=== PATIENT | female | born 1970 | race Caucasian/White ===

== ENCOUNTER 2022-10-31 11:58 | Emergency (ER) | payer MEDICAID, SELFPAY ==
--- NOTE | ~2022-10-31 | CT_ITS ---
EXAMINATION: CT ABDOMEN AND PELVIS WITH CONTRAST CLINICAL INFORMATION: Diffuse abdominal pain, epigastric and lower. COMPARISON: None available. TECHNIQUE: Multidetector volumetric images were obtained from the superior aspect of the liver through the pubic symphysis following administration 85 mL of Omnipaque 350 intravenous contrast. Sagittal and coronal reformatted images were obtained on the technologist's workstation. Oral contrast: No This CT examination was performed using dose optimization techniques as appropriate, variously including the following: *Automated exposure control *Adjustment of mA and/or kV according to patient size (this includes techniques or standardized protocols for targeted exams where dose is matched to indication/reason for exam; i.e. extremities or head) *Use of iterative reconstruction technique DLP: 440 mGy-cm FINDINGS: LUNG BASES: The visualized lung bases are unremarkable. LIVER, GALLBLADDER, AND BILIARY TREE: No significant hepatic abnormality. Status post cholecystectomy with associated mild biliary ductal dilatation. PANCREAS: Unremarkable. SPLEEN: Unremarkable. ADRENAL GLANDS: Unremarkable. KIDNEYS AND URETERS: The kidneys are normal in size, shape, and attenuation. No hydronephrosis, hydroureter, or calculi seen. No perinephric stranding. BLADDER: Unremarkable. GASTROINTESTINAL TRACT: The stomach is unremarkable. Several mildly prominent fluid-filled loops of small bowel are seen without significant mural thickening. This is seen to the level of the terminal ileum. Moderate liquefied stool seen within the proximal colon. Mild gas and stool are seen in the distal colon to the rectum without surrounding abnormality. ABDOMINAL WALL: Postsurgical changes. Small left paramedian infraumbilical fat-containing hernia (image 56, series 3; image 52, series 8). LYMPH NODES: No lymphadenopathy. VASCULAR: Unremarkable. PELVIC VISCERA: Enlarged fibroid uterus no significant adnexal abnormality. OSSEOUS STRUCTURES: Unremarkable. CT/CT abdomen pelvis w IV con IMPRESSION: 1. Several fluid-filled loops of small bowel without pathologic dilatation or definitive obstruction. Moderate liquefied stool within the proximal colon with no significant abnormality distally. These findings are nonspecific. The patient has persistent abdominal pain, short-term radiographic follow-up with supine and upright views is recommended to assess for change. 2. Small fat-containing ventral hernia adjacent to the anterior surgical clips. 3. Enlarged fibroid uterus.
[2022-10-31 12:05] VITALS: BP 134/62; PULSE 108; O2SAT 98
[2022-10-31 12:36] VITALS: BP 110/51; PULSE 105; RESP 20; TEMP 36.4; O2SAT 99; BMI 30.3
--- NOTE | 2022-10-31 12:51 | ED_ITS ---
HPI - Female Genitourinary General Chief complaint: Urogenital-Female Stated complaint: PAINFUL URINATION,PAIN TO BLADDER AND KIDNEYS Time Seen by Provider: 10/31/22 12:45 Source: patient, EMS, RN notes reviewed and old records reviewed Mode of arrival: EMS History of Present Illness HPI Narrative: 52-year-old female with no significant past medical history presenting to the ED complaining of dysuria, urinary hesitancy, nausea, and lower abdominal pain x2 days. Also reports acute on chronic low back pain. Denies fever, chills, vomit ing/diarrhea, vaginal bleeding/discharge MD elicited complaint: dysuria Related Data Previous Rx's Medication Instructions Recorded cefpodoxime 200 mg tablet 200 mg PO BID 10 days #20 tabs 10/31/22 Allergies Allergy/AdvReac Type Severity Reaction Status Date / Time ciprofloxacin [From Cipro] Allergy Unknown Verified 10/31/22 12:32 Review of Systems Review of Systems: Constitutional: No Fever, No Chills, No Fatigue, No Malaise ENT/Mouth:No Ear Pain, No sore throat, No Rhinorrhea, No Swallowing Difficulty Eyes: No Eye Pain, No Swelling, No Redness, No Vision Changes Cardiovascular: No Chest Pain, No SOB, No Edema, No Palpitations Respiratory: No Cough, No Sputum, No Dyspnea Gastrointestinal: + Nausea, No Vomiting, No Diarrhea, No Constipation, + Abdominal pain Genitourinary: +Dysuria, No Urinary Frequency, No Hematuria, No Urgency, No Flank Pain, No Urinary Flow Changes, + Hesitancy Musculoskeletal: No joint pain, No Myalgias, No Joint Swelling Skin: No Skin Lesions, No rash Neuro: No Weakness, No Headache Yes all other systems are reviewed and are negative Constitutional: Constitutional: Reports as per [facility] Past Medical History Attestation statement: The following information was validated with the patient. Source: old records reviewed Medical History (Updated 10/31/22 @ 17:58 by NADIA Fagan) Diabetes mellitus UTI (urinary tract infection) Social History Social History Alcohol intake: current Alcohol intake frequency: a few times a week Smoked in Last 30 Days: No Use of substances other than those prescribed or required for medical reasons: Yes Substance Use Type: Marijuana Advance Directives: No Advance Directives Information Provided: No Physical Exam Vital Signs: Vital Signs: Last Vital Signs Temp 98 F 10/31/22 17:45 Pulse 91 10/31/22 17:45 Resp 18 10/31/22 17:45 BP 128/74 10/31/22 17:45 Pulse Ox 100 10/31/22 17:45 O2 Del Method Room Air 10/31/22 17:45 BMI result Body Mass Index 30.3 Const: General: cooperative, healthy appearing and no acute distress Orientation/consciousness: patient oriented x3 Limitations: no limitations HEENT: Head: Yes normal to inspection and Yes atraumatic Ears: hearing grossly normal bilaterally General nose exam: Normal external nose present Face and sinus: Yes normal facial exam Eyes: General: appearance normal, both eyes and all related structures EOM: EOMs intact bilaterally Neck: Neck: Yes normal visual inspection and Yes no meningeal signs Resp: Effort & Inspection: normal respiratory effort and no respiratory distress Auscultation: clear to auscultation bilaterally Cardio: Rate: regular rate Heart sounds: S1 normal heart sound present and S2 normal heart sound present GI: Inspection: Yes normal to inspection Palpation (GI): Soft to palpation, Tenderness to palpation present (GI) (lower abdomen) in the epigastrum; with no rebound tenderness, no guarding and not rigid : General: Yes no CVA tenderness Back/Spine/Pelvis: Back: no CVA tenderness Skin: Rashes: no rashes Wounds: no wounds Neuro: General: patient oriented x3, tone normal and no meningeal signs Gait exam (Neuro): Normal gait present Extrem: General: Yes normal to inspection Course Course Course Narrative: -1353--UA contaminated however with positive nitrates, leuk esterase, rbc's and wbc's -mild leukocytosis of 12.5. H&H low at 8.5/29.3 > no available priors to compare -UA contaminated however infected CT abdomen pelvis w IV con IMPRESSION: 1. Several fluid-filled loops of small bowel without pathologic dilatation or definitive obstruction. Moderate liquefied stool within the proximal colon with no significant abnormality distally. These findings are nonspecific. The patient has persistent abdominal pain, short-term radiographic follow-up with supine and upright views is recommended to assess for change. 2. Small fat-containing ventral hernia adjacent to the anterior surgical clips. 3. Enlarged fibroid uterus. > on re-evaluation patient reports symptomatic improvement, did tolerate p.o. crackers and janessa rale, abdomen soft still mildly tender > LLQ >> will consult General surgery, Dr. Way > evaluated patient in the ED, suspect ileus from UTI, patient refusing admission, would like to sign out AMA. General surgery recommended if tolerating p.o., appears well can be okay for discharge, ideally patient would be admitted, discussed worrisome signs and symptoms, strict return precautions and needed close follow-up. Discussed risks of leaving AMA, patient will sign out Medications Administered Discontinued Medications Generic Name Dose Route Start Last Admin Trade Name Freq PRN Reason Stop Dose Admin Famotidine 20 mg 10/31/22 13:30 10/31/22 14:17 Famotidine/Pf 20 Mg/2 Ml Vial IVPUSH 10/31/22 13:31 20 mg ONCE ONE Administration Sodium Chloride 1,000 mls @ 999 mls/hr 10/31/22 13:30 10/31/22 16:09 Ns IV 10/31/22 14:30 Infused .Q1H1M NONA Infusion Iohexol 100 ml 10/31/22 14:57 10/31/22 14:58 Iohexol 350 Mg/Ml 100 Ml Infus..Btl IV 10/31/22 14:58 85 ml ONCE ONE Administration Ondansetron HCl 4 mg 10/31/22 13:30 10/31/22 14:19 Ondansetron Hcl 4 Mg/2 Ml Vial IVPUSH 10/31/22 13:31 4 mg ONCE ONE Administration Medical Decision Making Medical Decision Making MDM Narrative: 52-year-old female with no significant past medical history presenting to the ED complaining of dysuria, urinary hesitancy, nausea, and lower abdominal pain x2 days. On exam mildly tachycardic likely from discomfort, NAD/nontoxic appearing, abdomen soft epigastric/lower diffuse tenderness, no rebound or guarding, no CVAT. Concern for UTI vs renal stone vs Pyelonephritis vs appendi citis/diverticulitis. Lower suspicion for STI/ovarian torsion/cyst Plan: Labs, UA, CT AP, IVF, pain control, re-evaluate Low suspicion for severe sepsis Please refer to course for remaining clinical decision making, interpretation of labs/imaging results, and discussions with consultants and/or family members. Differential Diagnosis Differential Diagnoses: The differential diagnosis associated with the presentation includes As above Admission/Observation Consideration of admission/observation: Escalation of care including admission/observation considered Consult Healthcare Provider Management of the patient was discussed with: Choral Director (general surgeon, Dr. Way) Lab Data MDM Lab Attestation statement: I reviewed the patient's lab results. 10/31/22 13:47 Labs: Lab Results 10/31/22 10/31/22 10/31/22 Range/Units 12:48 12:48 13:47 WBC 12.5 H (4.8-10.8) X10*3/uL RBC 3.81 L (4.20-5.50) X10*6/uL Hgb 8.5 L (12.0-16.0) g/dl Hct 29.3 L (37.0-47.0) % MCV 76.9 L (80.0-98.0) fL MCH 22.3 L (27.0-33.0) pg MCHC 29.0 L (31.0-35.0) g/dl RDW 16.3 H (11.0-16.0) % Plt Count 321 (160-400) X10*3/uL MPV 9.7 (9.4-12.3) fL Immature Gran % (Auto) 0.2 (0.0-0.4) % Neut % (Auto) 89.8 H (45-73) % Lymph % (Auto) 4.6 L (20-40) % Saline % (Auto) 5.0 (2-11) % Eos % (Auto) 0.2 (0-4) % Baso % (Auto) 0.2 (0-2) % Lymph # (Auto) 0.6 L (1.2-4.9) X10*3/uL Saline # (Auto) 0.6 (0.1-1.2) X10*3/uL Eos # (Auto) 0.0 (0.0-0.4) X10*3/uL Baso # (Auto) 0.0 (0.0-0.2) X10*3/uL Abs Immat Gran (auto) 0.03 (0.00-0.03) X10*3/uL Absolute Neuts (auto) 11.2 H (2.0-8.3) x10*3/uL Absolute Nucleated RBC 0.000 (0.0-0.012) X10*3/uL Nucleated RBC % (auto) 0.0 (0.0-0.2) /100WBC Sodium (135-145) mmol/L Potassium (3.3-5.1) mmol/L Chloride (96-108) mmol/L Carbon Dioxide (22-29) mmol/L Anion Gap (12-20) BUN (9-16) mg/dL Creatinine (0.5-1.4) mg/dL Estim Creat Clear Calc Estimated GFR Random Glucose (60-115) mg/dL Calcium (8.4-10.2) mg/dL Magnesium (1.6-2.6) mg/dL Total Bilirubin (0.0-1.0) mg/dL Direct Bilirubin (0.0-0.5) mg/dL AST (5-31) U/L ALT (0-31) U/L Alkaline Phosphatase (39-117) U/L Total Protein (6.5-8.0) g/dL Albumin (3.5-5.0) g/dL Lipase (8-78) U/L Urine Color Yellow Urine Appearance Turbid Urine pH 5.5 (5.0-9.0) Ur Specific [place] 1.020 (1.005-1.025) Urine Protein Negative (Neg-Trace) mg/dL Urine Glucose (UA) Negative (Negative) mg/dL Urine Ketones Negative (Negative) mg/dL Urine Blood Small (1+) H (Negative) Urine Nitrite Positive H (Negative) Ur Leukocyte Esterase Moderate (2+) H (Negative) Urine RBC >20 H (0-2) /HPF Urine WBC 21-50 H (0-5) /HPF Ur Squamous Epith Cells 11-20 (0-2) /HPF Other Crystals Present Urine Bacteria 4+ (None Seen) Hyaline Casts 0-2 (0-2) /LPF Urine Test NEGATIVE (NEGATIVE) 10/31/22 Range/Units 13:47 WBC (4.8-10.8) X10*3/uL RBC (4.20-5.50) X10*6/uL Hgb (12.0-16.0) g/dl Hct (37.0-47.0) % MCV (80.0-98.0) fL MCH (27.0-33.0) pg MCHC (31.0-35.0) g/dl RDW (11.0-16.0) % Plt Count (160-400) X10*3/uL MPV (9.4-12.3) fL Immature Gran % (Auto) (0.0-0.4) % Neut % (Auto) (45-73) % Lymph % (Auto) (20-40) % Saline % (Auto) (2-11) % Eos % (Auto) (0-4) % Baso % (Auto) (0-2) % Lymph # (Auto) (1.2-4.9) X10*3/uL Saline # (Auto) (0.1-1.2) X10*3/uL Eos # (Auto) (0.0-0.4) X10*3/uL Baso # (Auto) (0.0-0.2) X10*3/uL Abs Immat Gran (auto) (0.00-0.03) X10*3/uL Absolute Neuts (auto) (2.0-8.3) x10*3/uL Absolute Nucleated RBC (0.0-0.012) X10*3/uL Nucleated RBC % (auto) (0.0-0.2) /100WBC Sodium 137 (135-145) mmol/L Potassium 3.9 (3.3-5.1) mmol/L Chloride 107 (96-108) mmol/L Carbon Dioxide 22 (22-29) mmol/L Anion Gap 12 (12-20) BUN 9 (9-16) mg/dL Creatinine 0.58 (0.5-1.4) mg/dL Estim Creat Clear Calc 87.0 Estimated GFR > 60 Random Glucose 111 (60-115) mg/dL Calcium 8.6 (8.4-10.2) mg/dL Magnesium 1.7 (1.6-2.6) mg/dL Total Bilirubin 0.3 (0.0-1.0) mg/dL Direct Bilirubin 0.1 (0.0-0.5) mg/dL AST 13 (5-31) U/L ALT 7 (0-31) U/L Alkaline Phosphatase 91 (39-117) U/L Total Protein 6.8 (6.5-8.0) g/dL Albumin 3.5 (3.5-5.0) g/dL Lipase 12 (8-78) U/L Urine Color Urine Appearance Urine pH (5.0-9.0) Ur Specific [place] (1.005-1.025) Urine Protein (Neg-Trace) mg/dL Urine Glucose (UA) (Negative) mg/dL Urine Ketones (Negative) mg/dL Urine Blood (Negative) Urine Nitrite (Negative) Ur Leukocyte Esterase (Negative) Urine RBC (0-2) /HPF Urine WBC (0-5) /HPF Ur Squamous Epith Cells (0-2) /HPF Other Crystals Urine Bacteria (None Seen) Hyaline Casts (0-2) /LPF Urine Test (NEGATIVE) Radiology Impression Discussion of test interpretation with radiology: I have reviewed the radiologist's reading. Independent Historian Clinical information obtained from an independent historian. History obtained from or confirmed by: EMS External Record Review External record reviewed: Inpatient record, Office record, Outpatient record, Prior outpatient labs, Prior outpatient radiology, Primary care record and Outside ED record Tests considered The following testing was considered but not selected: As above Prescription Management I considered prescription management with: Pain Medication Discharge Plan Discharge Clinical Impression: UTI (urinary tract infection), Ileus Patient Disposition: Left Against Medical Advice Instructions: Ileus (ED), Urinary Tract Infection in Older Adults (ED) Additional Instructions: Your blood work does show anemia, please have repeat labs outpatient with her primary care doctor You do have a urinary tract infection as well as fluid-filled loops of bowel suspicious for an ileus CEFPODOXIME IS AN ANTIBIOTIC PLEASE TAKE PRESCRIBED WE RECOMMENDED YOU ARE ADMITTED TO THE HOSPITAL TODAY HOWEVER YOUR SIGNING OUT AGAINST MEDICAL ADVICE. YOU ARE ALWAYS WELCOME TO RETURN Practice clear liquids for the next few days IF YOU HAVE PERSISTENT WORSENING ABDOMINAL PAIN, PERSISTENT WORSENING NAUSEA/ VOMITING, YOUR UNABLE TO EAT OR DO NOT HAVE A BOWEL MOVEMENT IN 48 HOURS RETURN TO THE ED IMMEDIATELY FOLLOW-UP WITH YOUR DOCTOR Willis an?lisis de omari muestra anemia, repita los an?lisis de laboratorio louie paciente ambulatorio con willis m?dico de atenci?n primaria Tiene dago infecci?n del tracto urinario, as? louie asas intestinales llenas de l?quido sospechosas de ?damien. CEFPODOXIMA ES UN ANTIBI?KEYLA POR FAVOR T?OREILLY SEG?N LO RECETADO LE RECOMENDAMOS QUE EST? ADMITIDO EN EL HOSPITAL HOY SIN EMBARGO WILLIS SALIDA EN CONTRA DEL CONSEJO M?DICO. SIEMPRE ERES ANGIE A VOLVER Practique l?quidos emily breanne los pr?ximos d?as. SI USTED TIENE DOLOR ABDOMINAL QUE EMPEORA PERSISTENTE, N?USEAS/V?MITOS QUE EMPEORAN PERSISTENTE, NO PUEDE COMER O NO TIENE DAGO DEFECCI?N EN 48 HORAS, VUELVA AL ED INMEDIATAMENTE SEGUIMIENTO CON WILLIS M?DICO Prescriptions: New cefpodoxime 200 mg tablet 200 mg PO BID 10 Days Qty: 20 0RF Rx Instructions: must administer with a meal/food Referrals: [facility] [place] [facility] [Provider Group] Physician,Shama J [Primary Care Provider] - 5 days Stand Alone Forms: Against Medical Advice Interventions: ED Discharge Assessment Last Done: 10/31/22 18:10 Discharge Date/Time: 10/31/22 18:12 Print Language: Qatari
[2022-10-31 12:57] LABS: Appearance Urine Turbid; Color Urine Yellow; Glucose Urine UA Negative (Negative); Leukocyte Esterase Urine Moderate (2+) (Negative); Nitrite Urine Positive (Negative); PH 5.5 (5.0-9.0); UMIC TRIGGER UACC YES; Urine Blood Small (1+) (Negative); Urine Ketones Negative (Negative); Urine Protein Negative (Neg-Trace)
[2022-10-31 13:12] LABS: Bacteria Urine 4+ (None Seen); Hyaline Casts Urine 0-2 /LPF (0-2); Other Crystals Urine Present; RBC Urine >20 /HPF (0-2); UACC Culture Trigger YES; WBC Urine 21-50 /HPF (0-5)
--- NOTE | 2022-10-31 13:54 | ECG_ITS ---
Test Reason : back pain Blood Pressure : / mmHG Vent. Rate : 084 BPM Atrial Rate : 084 BPM P-R Int : 142 ms QRS Dur : 088 ms QT Int : 380 ms P-R-T Axes : 074 056 044 degrees QTc Int : 449 ms Normal sinus rhythm Normal ECG No previous ECGs available Referred By: Brionna Montero Electronically Signed By:Shravan Miller
[2022-10-31 14:06] LABS: Basophils Percent Auto 0.2 % (0-2); Eosinophils Percent Auto 0.2 % (0-4); Hematocrit 29.3 % (37.0-47.0); Hemoglobin 8.5 g/dl (12.0-16.0); Imm Gran Abs Auto 0.03 X10*3/uL (0.00-0.03); Imm Gran Pct Auto 0.2 % (0.0-0.4); Lymphocytes Absolute Auto 0.6 X10*3/uL (1.2-4.9); Lymphocytes Percent Auto 4.6 % (20-40); MANUAL DIFF FLAG NO; Mean Corpuscular Hemoglobin 22.3 pg (27.0-33.0); Mean Corpuscular Volume 76.9 fL (80.0-98.0); Mean Platelet Volume 9.7 fL (9.4-12.3); Monocytes Absolute Auto 0.6 X10*3/uL (0.1-1.2); Neutrophils Absolute Auto 11.2 x10*3/uL (2.0-8.3); Neutrophils Percent Auto 89.8 % (45-73); Platelet Count 321 X10*3/uL (160-400); Red Blood Count 3.81 X10*6/uL (4.20-5.50); Red Cell Distribution Width 16.3 % (11.0-16.0); White Blood Count 12.5 X10*3/uL (4.8-10.8)
[2022-10-31 14:09] LABS: UPreg QC Valid YES; Urine Pregnancy NEGATIVE (NEGATIVE)
[2022-10-31] MEDS: 0.9 % Sodium Chloride 1,000 ML 999 ML IV (14:16)
[2022-10-31] MEDS: Famotidine/PF 20 MG/2 ML VIAL IVPUSH (14:17)
[2022-10-31] MEDS: ondansetron HCL 4 MG/2 ML VIAL IVPUSH (14:19)
[2022-10-31 14:32] LABS: Alanine Aminotransferase 7 U/L (0-31); Albumin Level 3.5 g/dL (3.5-5.0); Alkaline Phosphatase 91 U/L (39-117); Anion Gap 12 (12-20); Aspartate Amino Transferase 13 U/L (5-31); Bilirubin Direct 0.1 mg/dL (0.0-0.5); Bilirubin Total 0.3 mg/dL (0.0-1.0); Blood Urea Nitrogen 9 mg/dL (9-16); Calcium 8.6 mg/dL (8.4-10.2); Carbon Dioxide 22 mmol/L (22-29); Chloride 107 mmol/L (96-108); Estimated Glomerular Filt Rate > 60; Glucose Random 111 mg/dL (60-115); Lipase 12 U/L (8-78); Magnesium 1.7 mg/dL (1.6-2.6); Potassium 3.9 mmol/L (3.3-5.1); Sodium 137 mmol/L (135-145); Total Protein 6.8 g/dL (6.5-8.0)
[2022-10-31] MEDS: iohexoL 350 MG/ML 100 ML INFUS..BTL IV (14:58)
[2022-10-31 15:04] VITALS: BP 112/61; PULSE 90; RESP 16; TEMP 36.6; O2SAT 100
--- NOTE | 2022-10-31 17:42 | P.CONGS_ITS ---
History of Present Illness Consult details Consult date: 10/31/22 Narrative: 52F here in the ED for dysuria x 2 days. She describes lower abdominal/suprapubic pain especially with urination. Her UA was positive for a UTI. She also ahd a CT scan done in view of the lower abdominal pain and this showed the right colon to have a lot of liquid stools without any inflammatory changes nor signs of obstruction. She deneis any nausea or vomitting. She denies diarrhea and says she has had good stools and passing flatus. She has a hx of open cholecystectomy in the distant past. Review of Systems Constitutional: Constitutional: Denies chills and Denies fever(s) Cardiovascular: Cardiovascular: Denies chest pain, Denies dyspnea and Denies dyspnea on exertion Respiratory: Respiratory: Denies cough, Denies dyspnea and Denies dyspnea on exertion Gastrointestinal: Gastrointestinal: Denies hematochezia and Denies change in bowel habits Genitourinary: Genitourinary: Denies hematuria, Reports difficulty voiding, Reports dysuria and Reports pelvic pain Musculoskeletal: Musculoskeletal: Denies back pain and Denies limited range of motion Neurologic: Denies focal weakness and Denies convulsions Psychiatric: Psychiatric: Denies depression and Denies mood swings PMFSH Past Medical History Medical History (Updated 11/01/22 @ 00:01 by Dayana Peralta) Diabetes mellitus UTI (urinary tract infection) Social History Social History Alcohol intake: current Alcohol intake frequency: a few times a week Smoked in Last 30 Days: No Use of substances other than those prescribed or required for medical reasons: Yes Substance Use Type: Marijuana Advance Directives: No Advance Directives Information Provided: No Meds Allergies Allergy/AdvReac Type Severity Reaction Status Date / Time ciprofloxacin [From Cipro] Allergy Unknown Verified 10/31/22 12:32 Physical Exam Vital Signs: Vital Signs: Last Vital Signs Temp 97.9 F 10/31/22 15:04 Pulse 90 10/31/22 15:04 Resp 16 10/31/22 15:04 BP 112/61 10/31/22 15:04 Pulse Ox 100 10/31/22 15:04 O2 Del Method Room Air 10/31/22 15:04 BMI result Body Mass Index 30.3 Const: General: comfortable and no acute distress Orientation/consciousness: patient oriented x3 Neck: Neck: Yes no lymphadenopathy Resp: Auscultation: clear to auscultation bilaterally Cardio: Rhythm: regular rhythm GI: Other: mild tenderness to deep palpation on suprapubic area, both lower flanks Palpation (GI): Soft to palpation, not firm, Tenderness to palpation present (GI), no guarding and not rigid Neuro: General: patient oriented x3 Results Labs 10/31/22 13:47 10/31/22 13:47 Labs: Abnormal lab results 10/31/22 10/31/22 Range/Units 12:48 13:47 WBC 12.5 H (4.8-10.8) X10*3/uL RBC 3.81 L (4.20-5.50) X10*6/uL Hgb 8.5 L (12.0-16.0) g/dl Hct 29.3 L (37.0-47.0) % MCV 76.9 L (80.0-98.0) fL MCH 22.3 L (27.0-33.0) pg MCHC 29.0 L (31.0-35.0) g/dl RDW 16.3 H (11.0-16.0) % Neut % (Auto) 89.8 H (45-73) % Lymph % (Auto) 4.6 L (20-40) % Lymph # (Auto) 0.6 L (1.2-4.9) X10*3/uL Absolute Neuts (auto) 11.2 H (2.0-8.3) x10*3/uL Urine Blood Small (1+) H (Negative) Urine Nitrite Positive H (Negative) Ur Leukocyte Esterase Moderate (2+) H (Negative) Urine RBC >20 H (0-2) /HPF Urine WBC 21-50 H (0-5) /HPF Short CBC 10/31/22 Range/Units 13:47 WBC 12.5 H (4.8-10.8) X10*3/uL Hgb 8.5 L (12.0-16.0) g/dl Hct 29.3 L (37.0-47.0) % Plt Count 321 (160-400) X10*3/uL BMP 10/31/22 13:47 Sodium 137 Potassium 3.9 Chloride 107 Carbon Dioxide 22 BUN 9 Creatinine 0.58 Calcium 8.6 Liver Function 10/31/22 Range/Units 13:47 Total Bilirubin 0.3 (0.0-1.0) mg/dL Direct Bilirubin 0.1 (0.0-0.5) mg/dL AST 13 (5-31) U/L ALT 7 (0-31) U/L Alkaline Phosphatase 91 (39-117) U/L Albumin 3.5 (3.5-5.0) g/dL Urine 10/31/22 10/31/22 Range/Units 12:48 12:48 Urine Color Yellow Urine Appearance Turbid Urine pH 5.5 (5.0-9.0) Ur Specific [place] 1.020 (1.005-1.025) Urine Protein Negative (Neg-Trace) mg/dL Urine Glucose (UA) Negative (Negative) mg/dL Urine Test NEGATIVE (NEGATIVE) All other labs normal. Laboratory Results WBC 12.5 X10*3/uL (4.8-10.8) H 10/31/22 13:47 RBC 3.81 X10*6/uL (4.20-5.50) L 10/31/22 13:47 Hgb 8.5 g/dl (12.0-16.0) L 10/31/22 13:47 Hct 29.3 % (37.0-47.0) L 10/31/22 13:47 MCV 76.9 fL (80.0-98.0) L 10/31/22 13:47 MCH 22.3 pg (27.0-33.0) L 10/31/22 13:47 MCHC 29.0 g/dl (31.0-35.0) L 10/31/22 13:47 RDW 16.3 % (11.0-16.0) H 10/31/22 13:47 Plt Count 321 X10*3/uL (160-400) 10/31/22 13:47 MPV 9.7 fL (9.4-12.3) 10/31/22 13:47 Immature Gran % (Auto) 0.2 % (0.0-0.4) 10/31/22 13:47 Neut % (Auto) 89.8 % (45-73) H 10/31/22 13:47 Lymph % (Auto) 4.6 % (20-40) L 10/31/22 13:47 [place] % (Auto) 5.0 % (2-11) 10/31/22 13:47 Eos % (Auto) 0.2 % (0-4) 10/31/22 13:47 Baso % (Auto) 0.2 % (0-2) 10/31/22 13:47 Lymph # (Auto) 0.6 X10*3/uL (1.2-4.9) L 10/31/22 13:47 [place] # (Auto) 0.6 X10*3/uL (0.1-1.2) 10/31/22 13:47 Eos # (Auto) 0.0 X10*3/uL (0.0-0.4) 10/31/22 13:47 Baso # (Auto) 0.0 X10*3/uL (0.0-0.2) 10/31/22 13:47 Abs Immat Gran (auto) 0.03 X10*3/uL (0.00-0.03) 10/31/22 13:47 Absolute Neuts (auto) 11.2 x10*3/uL (2.0-8.3) H 10/31/22 13:47 Absolute Nucleated RBC 0.000 X10*3/uL (0.0-0.012) 10/31/22 13:47 Nucleated RBC % (auto) 0.0 /100WBC (0.0-0.2) 10/31/22 13:47 Sodium 137 mmol/L (135-145) 10/31/22 13:47 Potassium 3.9 mmol/L (3.3-5.1) 10/31/22 13:47 Chloride 107 mmol/L (96-108) 10/31/22 13:47 Carbon Dioxide 22 mmol/L (22-29) 10/31/22 13:47 Anion Gap 12 (12-20) 10/31/22 13:47 BUN 9 mg/dL (9-16) 10/31/22 13:47 Creatinine 0.58 mg/dL (0.5-1.4) 10/31/22 13:47 Estim Creat Clear Calc 87.0 10/31/22 13:47 Estimated GFR > 60 10/31/22 13:47 Random Glucose 111 mg/dL (60-115) 10/31/22 13:47 Calcium 8.6 mg/dL (8.4-10.2) 10/31/22 13:47 Magnesium 1.7 mg/dL (1.6-2.6) 10/31/22 13:47 Total Bilirubin 0.3 mg/dL (0.0-1.0) 10/31/22 13:47 Direct Bilirubin 0.1 mg/dL (0.0-0.5) 10/31/22 13:47 AST 13 U/L (5-31) 10/31/22 13:47 ALT 7 U/L (0-31) 10/31/22 13:47 Alkaline Phosphatase 91 U/L (39-117) 10/31/22 13:47 Total Protein 6.8 g/dL (6.5-8.0) 10/31/22 13:47 Albumin 3.5 g/dL (3.5-5.0) 10/31/22 13:47 Lipase 12 U/L (8-78) 10/31/22 13:47 Urine Color Yellow 10/31/22 12:48 Urine Appearance Turbid 10/31/22 12:48 Urine pH 5.5 (5.0-9.0) 10/31/22 12:48 Ur Specific [place] 1.020 (1.005-1.025) 10/31/22 12:48 Urine Protein Negative mg/dL (Neg-Trace) 10/31/22 12:48 Urine Glucose (UA) Negative mg/dL (Negative) 10/31/22 12:48 Urine Ketones Negative mg/dL (Negative) 10/31/22 12:48 Urine Blood Small (1+) (Negative) H 10/31/22 12:48 Urine Nitrite Positive (Negative) H 10/31/22 12:48 Ur Leukocyte Esterase Moderate (2+) (Negative) H 10/31/22 12:48 Urine RBC >20 /HPF (0-2) H 10/31/22 12:48 Urine WBC 21-50 /HPF (0-5) H 10/31/22 12:48 Ur Squamous Epith Cells 11-20 /HPF (0-2) 10/31/22 12:48 Other Crystals Present 10/31/22 12:48 Urine Bacteria 4+ (None Seen) 10/31/22 12:48 Hyaline Casts 0-2 /LPF (0-2) 10/31/22 12:48 Urine Test NEGATIVE (NEGATIVE) 10/31/22 12:48 Impressions Abdomen/Pelvis CT 10/31/22 15:07 IMPRESSION: 1. Several fluid-filled loops of small bowel without pathologic dilatation or definitive obstruction. Moderate liquefied stool within the proximal colon with no significant abnormality distally. These findings are nonspecific. The patient has persistent abdominal pain, short-term radiographic follow-up with supine and upright views is recommended to assess for change. 2. Small fat-containing ventral hernia adjacent to the anterior surgical clips. 3. Enlarged fibroid uterus. Assessment and Plan (1) UTI (urinary tract infection): Status: Acute She has suprapubic pain and dysuria with a UA c/w UTI. I have reviewed her CT scan. There is nonpathologic dilatation of some SB loops along with liquid stools in the proximal colon. She actually denies any diarrhea or constipation. She as no nausea or vomitting at all and has had good oral intake. Overall clinical picture does not suggest a GI pathology or obstruction. I did explain to her the option of being overnight for observation but she stated she does not want to stay in the hospital and says she feels ready to be discharged. She was instructed to come back to the ER if she has worsening of her abdominal pain. She will be on oral antibitoics as per the ED staff. Time Spent With Patient Time: Total time managing care of this patient today ____ minutes. Procedures Date of Service Date of Service: 11/08/22
[2022-10-31 17:45] VITALS: BP 128/74; PULSE 91; RESP 18; TEMP 36.6; O2SAT 100
== END 2022-10-31 18:12 | disposition left against medical advice (07) ==
PROVIDERS: Physician Assistant; Emergency Provider Emergency Medicine
DX: N39.0 Urinary tract infection, site not specified (principal); B96.20 Unspecified Escherichia coli [E. coli] as the cause of diseases classified elsewhere; K56.7 Ileus, unspecified; R00.0 Tachycardia, unspecified; E11.9 Type 2 diabetes mellitus without complications
CPT/HCPCS: 36415; 74177; 80048; 80076; 81001; 81025; 83690; 83735; 85025; 87086; 87088; 87186; 93005; 96361; 96374; 96375; 99284; J2405; Q9967

== ENCOUNTER → 2022-10-31 13:18 | Outpatient (BNV) | payer MEDICAID, SELFPAY | PROVIDERS: Emergency Provider Emergency Medicine; Visit Provider Surgery | DX: N39.0 Urinary tract infection, site not specified (principal) | CPT/HCPCS: 99283 ==

== ENCOUNTER → 2022-10-31 13:54 | Outpatient (BNV) | payer MEDICAID, SELFPAY | PROVIDERS: Emergency Provider Emergency Medicine; Visit Provider Internal Medicine Cardiovascular Disease | DX: M54.59 Other low back pain (principal); G89.29 Other chronic pain | CPT/HCPCS: 93010 ==

== ENCOUNTER 2022-11-16 15:43 | Outpatient (REF) | payer MEDICAID, SELFPAY ==
[2022-11-16 17:29] LABS: MANUAL DIFF FLAG NO
[2022-11-16 17:33] LABS: Appearance Urine Turbid; Color Urine Yellow; Glucose Urine UA Negative (Negative); Leukocyte Esterase Urine Negative (Negative); Nitrite Urine Positive (Negative); Specific Gravity - Urine >= 1.030 (1.005-1.025); UMIC TRIGGER UA YES; Urine Blood Moderate (2+) (Negative); Urine Ketones Negative (Negative); Urine Protein Trace mg/dL (Neg-Trace)
[2022-11-16 17:38] LABS: Basophils Absolute Auto 0.1 X10*3/uL (0.0-0.2); Basophils Percent Auto 0.7 % (0-2); Eosinophils Percent Auto 0.4 % (0-4); Hematocrit 28.5 % (37.0-47.0); Hemoglobin 8.3 g/dl (12.0-16.0); Imm Gran Abs Auto 0.02 X10*3/uL (0.00-0.03); Imm Gran Pct Auto 0.2 % (0.0-0.4); Lymphocytes Absolute Auto 1.6 X10*3/uL (1.2-4.9); Lymphocytes Percent Auto 18.5 % (20-40); Mean Corpuscular HGB Conc 29.1 g/dl (31.0-35.0); Mean Corpuscular Volume 75.4 fL (80.0-98.0); Mean Platelet Volume 9.1 fL (9.4-12.3); Monocytes Absolute Auto 0.4 X10*3/uL (0.1-1.2); Monocytes Percent Auto 4.3 % (2-11); Neutrophils Absolute Auto 6.5 x10*3/uL (2.0-8.3); Neutrophils Percent Auto 75.9 % (45-73); Platelet Count 903 X10*3/uL (160-400); Red Blood Count 3.78 X10*6/uL (4.20-5.50); Red Cell Distribution Width 16.5 % (11.0-16.0); White Blood Count 8.5 X10*3/uL (4.8-10.8)
[2022-11-16 17:58] LABS: Alanine Aminotransferase 11 U/L (0-31); Alkaline Phosphatase 104 U/L (39-117); Anion Gap 12 (12-20); Aspartate Amino Transferase 17 U/L (5-31); Bilirubin Direct 0.2 mg/dL (0.0-0.5); Bilirubin Total 0.4 mg/dL (0.0-1.0); Blood Urea Nitrogen 12 mg/dL (9-16); Calcium 9.1 mg/dL (8.4-10.2); Carbon Dioxide 27 mmol/L (22-29); Chloride 106 mmol/L (96-108); Cholesterol 132 mg/dL (<200); Estimated Glomerular Filt Rate > 60; Glucose Random 114 mg/dL (60-115); HDL Cholesterol 74 mg/dL (>40); LDL Cholesterol Calculated 48 mg/dL (<100); Potassium 3.6 mmol/L (3.3-5.1); Sodium 141 mmol/L (135-145); Total Protein 7.3 g/dL (6.5-8.0); Triglycerides 51 mg/dL (<150)
[2022-11-16 18:01] LABS: Bacteria Urine 4+ (None Seen); Calcium Oxalate Crystals Urine Present
[2022-11-16 18:14] LABS: TSH reflex Free T4 0.06 uIU/mL (0.32-4.0)
[2022-11-16 19:00] LABS: Free T4 (Free Thyroxine) 1.04 ng/dL (0.71-1.85)
[2022-11-17 05:59] LABS: HBS Num1 0.39 mIU/mL (0-7.99); HBc Num1 0.11 S/CO (0.00-0.79); HBsAGNum1 0.33 S/CO (0.00-0.99); HIV AB/AG Nonreactive (Nonreactive); HIV Num 1 0.07 S/CO (0.00-0.99); Hepatitis A Antibody IgM 0.19 Index (0-0.79); Hepatitis B Core Antibody Nonreactive (Nonreactive); Hepatitis B Surface Antigen Negative (Negative); ~HepC Num1 0.13 S/CO (0.00-0.79); ~Hepatitis A Antibody IgM Nonreactive (Nonreactive); ~Hepatitis B Surface Antibody NONREACTIVE (Nonreactive); ~Hepatitis C Antibody Nonreactive (Nonreactive)
[2022-11-17 06:30] LABS: CT PCR NOT DETECTED (Not Detect.); NG PCR NOT DETECTED (Not Detect.)
[2022-11-18 03:51] LABS: Syphilis Screen Nonreactive (Nonreactive)
== END 2022-11-16 15:44 | disposition home or self-care (01) ==
LOC: HO.HHCL 15:43
PROVIDERS: Visit Provider Internal Medicine
DX: Z11.4 Encounter for screening for human immunodeficiency virus [HIV] (principal); Z11.3 Encounter for screening for infections with a predominantly sexual mode of transmission; F10.90 Alcohol use, unspecified, uncomplicated; R35.0 Frequency of micturition
CPT/HCPCS: 0353U; 80048; 80061; 80076; 81001; 84439; 84443; 85025; 86592; 86704; 86706; 86709; 86780; 86803; 87086; 87088; 87186; 87340; 87389

== ENCOUNTER 2023-02-12 18:39 | Emergency (ER) | payer MEDICAID, SELFPAY ==
[2023-02-12 18:53] VITALS: BP 129/70; BP 135/80; PULSE 81; PULSE 94; RESP 18; TEMP 36.6; O2SAT 100; BMI 27.2
--- NOTE | 2023-02-12 18:57 | ED.GENADULT ---
HPI - General Adult General Chief complaint: Abdominal Pain Stated complaint: 09/03 R FLANK PAIN RADIATING DOWN LEG History of Present Illness HPI narrative: patient left before being evaluated by ED provider. Related Data Previous Rx's Medication Instructions Recorded cefpodoxime 200 mg tablet 200 mg PO BID 10 days #20 tabs 10/31/22 Allergies Allergy/AdvReac Type Severity Reaction Status Date / Time ciprofloxacin [From Cipro] Allergy Unknown Verified 02/12/23 19:00 [facility] Past Medical History Medical History (Updated 02/13/23 @ 13:59 by NADIA Hurtado) UTI (urinary tract infection) Diabetes mellitus Social History Social History Alcohol intake: current Alcohol intake frequency: a few times a week Substance Use Type: Marijuana Advance Directives: No Advance Directives Information Provided: No Physical Exam ED Vital Signs: Vital Signs - 24 hr 02/12/23 18:53 Temperature 97.8 F Pulse Rate 94 Respiratory Rate 18 Blood Pressure 129/70 Pulse Oximetry 100 Oxygen Delivery Method Room Air BMI result Body Mass Index 27.2 Course Course Course Narrative: RME: 52 yold female presents to the ED for right flank pain. Patient staetes pmh of kidney i infections. labs and UA ordered Medical Decision Making Lab Data 02/12/23 19:08 02/12/23 19:08 Labs: Lab Results 02/12/23 Range/Units 19:08 WBC 11.6 H (4.8-10.8) X10*3/uL RBC 3.70 L (4.20-5.50) X10*6/uL Hgb 8.0 L (12.0-16.0) g/dl Hct 27.7 L (37.0-47.0) % MCV 74.9 L (80.0-98.0) fL MCH 21.6 L (27.0-33.0) pg MCHC 28.9 L (31.0-35.0) g/dl RDW 17.4 H (11.0-16.0) % Plt Count 324 D (160-400) X10*3/uL MPV 10.3 (9.4-12.3) fL Immature Gran % (Auto) 0.3 (0.0-0.4) % Neut % (Auto) 60.9 (45-73) % Lymph % (Auto) 30.0 (20-40) % [place] % (Auto) 6.6 (2-11) % Eos % (Auto) 1.2 (0-4) % Baso % (Auto) 1.0 (0-2) % Lymph # (Auto) 3.5 (1.2-4.9) X10*3/uL [place] # (Auto) 0.8 (0.1-1.2) X10*3/uL Eos # (Auto) 0.1 (0.0-0.4) X10*3/uL Baso # (Auto) 0.1 (0.0-0.2) X10*3/uL Abs Immat Gran (auto) 0.04 H (0.00-0.03) X10*3/uL Absolute Neuts (auto) 7.0 (2.0-8.3) x10*3/uL Absolute Nucleated RBC 0.000 (0.0-0.012) X10*3/uL Nucleated RBC % (auto) 0.0 (0.0-0.2) /100WBC Sodium 139 (135-145) mmol/L Potassium 3.5 (3.3-5.1) mmol/L Chloride 110 H (96-108) mmol/L Carbon Dioxide 22 (22-29) mmol/L Anion Gap 11 L (12-20) BUN 15 (9-16) mg/dL Creatinine 0.60 (0.5-1.4) mg/dL Estim Creat Clear Calc 98.9 Estimated GFR > 60 Random Glucose 88 (60-115) mg/dL Calcium 8.4 D (8.4-10.2) mg/dL Total Bilirubin 0.2 (0.0-1.0) mg/dL AST 21 (5-31) U/L ALT 10 (0-31) U/L Alkaline Phosphatase 73 (39-117) U/L Total Protein 6.9 (6.5-8.0) g/dL Albumin 3.8 (3.5-5.0) g/dL Lipase 33 (8-78) U/L Beta HCG, Quant < 2 mIU/mL Urine Color Yellow Urine Appearance Clear Urine pH 5.5 (5.0-9.0) Ur Specific [place] 1.025 (1.005-1.025) Urine Protein Negative (Neg-Trace) mg/dL Urine Glucose (UA) Negative (Negative) mg/dL Urine Ketones Negative (Negative) mg/dL Urine Blood Moderate (2+) H (Negative) Urine Nitrite Negative (Negative) Ur Leukocyte Esterase Negative (Negative) Urine RBC 11-20 H (0-2) /HPF Urine WBC 0-5 (0-5) /HPF Ur Squamous Epith Cells 0-2 (0-2) /HPF Urine Bacteria None Seen (None Seen) Hyaline Casts 0-2 (0-2) /LPF Urine Test NEGATIVE (NEGATIVE) Discharge Plan Discharge Clinical Impression: Abdominal pain Patient Disposition: Elopement Prescriptions: No Action cefpodoxime 200 mg tablet 200 mg PO BID 10 Days Qty: 20 0RF Rx Instructions: must administer with a meal/food Interventions: ED Discharge Assessment Last Done: 02/12/23 22:30 Discharge Date/Time: 02/12/23 22:44
[2023-02-12 19:14] LABS: MANUAL DIFF FLAG NO
[2023-02-12 19:16] LABS: Appearance Urine Clear; Color Urine Yellow; Glucose Urine UA Negative (Negative); Leukocyte Esterase Urine Negative (Negative); Nitrite Urine Negative (Negative); PH 5.5 (5.0-9.0); Specific Gravity - Urine 1.025 (1.005-1.025); UMIC TRIGGER UACC YES; Urine Blood Moderate (2+) (Negative); Urine Ketones Negative (Negative); Urine Protein Negative (Neg-Trace)
[2023-02-12 19:19] LABS: UPreg QC Valid YES; Urine Pregnancy NEGATIVE (NEGATIVE)
[2023-02-12 19:21] LABS: Bacteria Urine None Seen (None Seen); Hyaline Casts Urine 0-2 /LPF (0-2); Squamous Epithelial Cell Urine 0-2 /HPF (0-2); WBC Urine 0-5 /HPF (0-5)
[2023-02-12 19:39] LABS: Alanine Aminotransferase 10 U/L (0-31); Albumin Level 3.8 g/dL (3.5-5.0); Alkaline Phosphatase 73 U/L (39-117); Anion Gap 11 (12-20); Aspartate Amino Transferase 21 U/L (5-31); Bilirubin Total 0.2 mg/dL (0.0-1.0); Blood Urea Nitrogen 15 mg/dL (9-16); Calcium 8.4 mg/dL (8.4-10.2); Carbon Dioxide 22 mmol/L (22-29); Chloride 110 mmol/L (96-108); Creatinine Clr Calc Pharmacy 98.9; Estimated Glomerular Filt Rate > 60; Glucose Random 88 mg/dL (60-115); HCG Quantitative < 2 mIU/mL; Lipase 33 U/L (8-78); Potassium 3.5 mmol/L (3.3-5.1); Sodium 139 mmol/L (135-145); Total Protein 6.9 g/dL (6.5-8.0)
[2023-02-12 19:49] LABS: Basophils Absolute Auto 0.1 X10*3/uL (0.0-0.2); Eosinophils Absolute Auto 0.1 X10*3/uL (0.0-0.4); Eosinophils Percent Auto 1.2 % (0-4); Hematocrit 27.7 % (37.0-47.0); Imm Gran Abs Auto 0.04 X10*3/uL (0.00-0.03); Imm Gran Pct Auto 0.3 % (0.0-0.4); Lymphocytes Absolute Auto 3.5 X10*3/uL (1.2-4.9); Mean Corpuscular HGB Conc 28.9 g/dl (31.0-35.0); Mean Corpuscular Hemoglobin 21.6 pg (27.0-33.0); Mean Corpuscular Volume 74.9 fL (80.0-98.0); Mean Platelet Volume 10.3 fL (9.4-12.3); Monocytes Absolute Auto 0.8 X10*3/uL (0.1-1.2); Monocytes Percent Auto 6.6 % (2-11); Neutrophils Percent Auto 60.9 % (45-73); Platelet Count 324 X10*3/uL (160-400); Red Cell Distribution Width 17.4 % (11.0-16.0); White Blood Count 11.6 X10*3/uL (4.8-10.8)
== END 2023-02-12 22:44 | disposition left against medical advice (07) ==
PROVIDERS: Physician Assistant; Emergency Provider Emergency Medicine
DX: R10.9 Unspecified abdominal pain (principal); M79.604 Pain in right leg; Z79.899 Other long term (current) drug therapy
CPT/HCPCS: 36415; 80053; 81001; 81025; 83690; 84702; 85025; 99282

== ENCOUNTER 2023-05-11 11:51 | Outpatient (REF) | payer MEDICAID, SELFPAY ==
[2023-05-11 13:10] LABS: MANUAL DIFF FLAG NO
[2023-05-11 13:30] LABS: Basophils Absolute Auto 0.1 X10*3/uL (0.0-0.2); Basophils Percent Auto 0.8 % (0-2); Eosinophils Absolute Auto 0.1 X10*3/uL (0.0-0.4); Eosinophils Percent Auto 1.3 % (0-4); Hematocrit 29.6 % (37.0-47.0); Hemoglobin 8.5 g/dl (12.0-16.0); Imm Gran Abs Auto 0.03 X10*3/uL (0.00-0.03); Imm Gran Pct Auto 0.3 % (0.0-0.4); Lymphocytes Absolute Auto 2.3 X10*3/uL (1.2-4.9); Mean Corpuscular HGB Conc 28.7 g/dl (31.0-35.0); Mean Corpuscular Hemoglobin 21.2 pg (27.0-33.0); Mean Corpuscular Volume 73.8 fL (80.0-98.0); Mean Platelet Volume 10.1 fL (9.4-12.3); Monocytes Absolute Auto 0.5 X10*3/uL (0.1-1.2); Monocytes Percent Auto 5.2 % (2-11); Neutrophils Absolute Auto 5.9 x10*3/uL (2.0-8.3); Neutrophils Percent Auto 66.4 % (45-73); Platelet Count 607 X10*3/uL (160-400); Red Blood Count 4.01 X10*6/uL (4.20-5.50); Red Cell Distribution Width 17.7 % (11.0-16.0); White Blood Count 8.9 X10*3/uL (4.8-10.8)
[2023-05-11 13:31] LABS: Estimated Average Glucose 108 mg/dL; Hemoglobin A1c % 5.4 % (<6.0)
[2023-05-11 13:37] LABS: Anion Gap 12 (12-20); Blood Urea Nitrogen 13 mg/dL (9-16); Calcium 9.1 mg/dL (8.4-10.2); Carbon Dioxide 23 mmol/L (22-29); Chloride 109 mmol/L (96-108); Estimated Glomerular Filt Rate > 60; Glucose Random 83 mg/dL (60-115); Sodium 140 mmol/L (135-145)
[2023-05-11 14:02] LABS: Creatinine Urine 19.98 mg/dL; Microalbumin Urine < 5.0 mg/L
== END 2023-05-11 11:52 | disposition home or self-care (01) ==
LOC: HO.HHCL 11:51
PROVIDERS: Visit Provider Internal Medicine
DX: E11.9 Type 2 diabetes mellitus without complications (principal); I10 Essential (primary) hypertension
CPT/HCPCS: 36415; 80048; 82043; 82570; 83036; 85025

== ENCOUNTER 2023-08-20 12:43 | Emergency (ER) | payer MEDICAID, SELFPAY ==
--- NOTE | ~2023-08-20 | XR_ITS ---
EXAMINATION: XR ANKLE, RIGHT CLINICAL INFORMATION: Pain COMPARISON: None available. TECHNIQUE: AP, lateral, and mortise views of the right ankle. FINDINGS: 2 mm ossific focus inferior to the medial malleolus may reflect sequela of trauma, chronicity indeterminate. Slight lucency involving the proximal fifth metatarsal may reflect an incomplete fracture versus summation artifact. Correlation with physical exam. Ankle mortise is symmetric. Plantar calcaneal heel spur. Joint space alignment are otherwise maintained. Soft tissue prominence along the lateral foot and ankle. XR/XR ankle RT min 3V IMPRESSION: 1. 2 mm ossific focus inferior to the medial malleolus may reflect sequela of trauma, chronicity indeterminate. 2. Slight lucency involving the proximal fifth metatarsal may reflect an incomplete fracture versus summation artifact. Correlation with physical exam. 3. Soft tissue prominence along the lateral foot and ankle. 4. Plantar calcaneal heel spur.
--- NOTE | ~2023-08-20 | XR_ITS ---
EXAMINATION: XR FOOT, RIGHT CLINICAL INFORMATION: Trauma. Pain. COMPARISON: None available. TECHNIQUE: AP, lateral, and oblique views of the right foot. FINDINGS: There is a fracture of through the tip of the proximal fifth metatarsal. Fracture measures about 4 x 5 mm and is slightly displaced. Small faintly seen additional fracture line at the base of fifth metatarsal approximately 1 cm from the tip of the fifth metatarsal. Plantar calcaneal spur. XR/XR foot RT min 3V IMPRESSION: Fracture through the tip of the proximal fifth metatarsal.
--- NOTE | 2023-08-20 12:51 | ED.GENADULT ---
HPI - General Adult General Chief complaint: Extremity Injury, Lower Stated complaint: R ANKLE INJ, FALL YESTERDAY PER EMS Time Seen by Provider: 08/20/23 16:08 Source: patient, EMS, RN notes reviewed and community outreach director Mode of arrival: EMS Limitations: language barrier History of Present Illness HPI narrative: 53 year old female presents for evaluation of right ankle and foot pain. Patient reports that she tripped and fell yesterday injuring her right foot and ankle. She reports that she is unable to bare weight on that side Her pain is 10/10, sharp, and stabbing Denies any other injuries Related Data Previous Rx's ?Medication ?Instructions ?Recorded cefpodoxime 200 mg tablet 200 mg PO BID 10 days #20 tabs 10/31/22 Allergies Allergy/AdvReac Type Severity Reaction Status Date / Time ciprofloxacin [From Cipro] Allergy Unknown Verified 08/20/23 13:19 Review of Systems Constitutional: Constitutional: Denies body ache(s), Denies chills and Denies headache(s) Eyes: Eyes: Denies blurry vision ENT: Denies headache(s) Cardiovascular: Cardiovascular: Denies dyspnea Respiratory: Respiratory: Denies cough and Denies dyspnea Gastrointestinal: Gastrointestinal: Denies abdominal pain Musculoskeletal: Musculoskeletal: Reports arthralgias, Reports joint swelling, Reports limited range of motion and Denies radiating pain into limb Integumentary/Breasts: Skin/Breast: Denies rash Neurologic: Denies headache(s) [facility] Past Medical History Medical History (Updated 08/20/23 @ 16:23 by Stanton Echevarria) UTI (urinary tract infection) Diabetes mellitus Social History Social History (System 05/12/23 @ 12:01 by Chasidy Swartz) Alcohol intake: current Alcohol intake frequency: a few times a week Substance Use Type: Marijuana Physical Exam ED Vital Signs: Vital Signs - 24 hr 08/20/23 13:17 Temperature 97 F Pulse Rate 79 Respiratory Rate 16 Blood Pressure 116/51 L Pulse Oximetry 99 Oxygen Delivery Method Room Air BMI result Body Mass Index 31.4 Const General: healthy appearing, comfortable, no acute distress, alert and awake Nutritional Appearance: well nourished Orientation/consciousness: patient oriented x3 HENMT Head: Yes normocephalic and Yes atraumatic Eyes Eyelids: Yes eyelids normal Conjunctivae: conjunctivae normal Sclerae: sclerae normal Corneas: corneas normal Pupils: Equal, round and reactive pupils present EOM: EOMs intact bilaterally Resp Effort & Inspection: normal respiratory effort, able to speak in complete sentences and not labored Skin General skin exam: elasticity normal Neuro General: patient oriented x3 Cranial nerves: Yes Equal, round and reactive pupils present and Yes Bilaterally intact EOM present Cognition (Neuro): normal cognition Extrem Other: Patient has edema to the right lateral ankle and dorsum of the right foot. There is ecchymosis overlying the dorsum of the right foot. These areas are tender to palpation. There is no tenderness over the right medial malleolus. Course Course Course Narrative: RME- patient fell yesterday injuring right ankle. Plan for x-ray Medications Administered Discontinued Medications Generic Name Dose Route Start Last Admin Trade Name Freq PRN Reason Stop Dose Admin Ibuprofen 600 mg 08/20/23 16:02 08/20/23 16:07 Ibuprofen 600 Mg Tablet PO 08/20/23 16:03 600 mg ONCE ONE Administration Medical Decision Making Medical Decision Making [facility] Narrative: 53-year-old female presents for evaluation of right foot and ankle pain. Her right ankle x-ray shows concern for an avulsion fracture of the medial malleolus. It is unclear the chronicity of this injury. The patient also has concern for a right 1st metatarsal fracture. Plan for dedicated foot x-rays. Patient be put in an Aircast for questionable avulsion fracture Differential Diagnosis Differential Diagnoses: The differential diagnosis associated with the presentation includes Ankle sprain Ankle fracture Foot fracture Contusion Independent Interpretation I performed an independent interpretation of an: Plain X-Ray Interpretation: Possible avulsion fracture of the medial malleolus. Radiology Impression Discussion of test interpretation with radiology: I have reviewed the radiologist's reading. Radiologist Impression: XR/XR ankle RT min 3V IMPRESSION: 1. 2 mm ossific focus inferior to the medial malleolus may reflect sequela of trauma, chronicity indeterminate. 2. Slight lucency involving the proximal fifth metatarsal may reflect an incomplete fracture versus summation artifact. Correlation with physical exam. 3. Soft tissue prominence along the lateral foot and ankle. 4. Plantar calcaneal heel spur. Discharge Plan Discharge Clinical Impression: Foot fracture, right, Right ankle sprain Patient Disposition: Still a Patient Instructions: Foot Fracture in Adults (ED), Ankle Sprain (ED) Prescriptions: No Action cefpodoxime 200 mg tablet 200 mg PO BID 10 Days Qty: 20 0RF Rx Instructions: must administer with a meal/food Referrals: Rodney Hadley MD [Physician] - (right foot fracture, ankle sprain) Print Language: Tamazight
[2023-08-20 12:52] VITALS: BP 131/83; PULSE 81; O2SAT 99
[2023-08-20 13:17] VITALS: BP 116/51; PULSE 79; RESP 16; TEMP 36.1; O2SAT 99; BMI 31.4
[2023-08-20] MEDS: Ibuprofen 600 MG TABLET PO (16:07)
[2023-08-20 16:12] VITALS: BP 139/79; PULSE 79; RESP 20; O2SAT 100
[2023-08-20 16:16] LABS: Glucose, Whole Blood 88 mg/dL (60-115)
[2023-08-20 19:31] VITALS: BP 134/74; PULSE 74; RESP 18; TEMP 36.8; O2SAT 100
== END 2023-08-20 19:32 | disposition home or self-care (01) ==
PROVIDERS: Emergency Provider Internal Medicine; PCP Internal Medicine
DX: S92.351A Displaced fracture of fifth metatarsal bone, right foot, initial encounter for closed fracture (principal); S93.401A Sprain of unspecified ligament of right ankle, initial encounter; W01.0XXA Fall on same level from slipping, tripping and stumbling without subsequent striking against object, initial encounter; F12.90 Cannabis use, unspecified, uncomplicated; Y93.9 Activity, unspecified; Y92.9 Unspecified place or not applicable; Y99.9 Unspecified external cause status
CPT/HCPCS: 29515; 73610; 73630; 82947; 99283

== ENCOUNTER 2023-10-03 12:26 | Emergency (ER) | payer MEDICAID, SELFPAY ==
--- NOTE | ~2023-10-03 | XR_ITS ---
EXAMINATION: XR CHEST 2 VIEW CLINICAL INFORMATION: Chest pain since morning COMPARISON: None TECHNIQUE: PA and lateral views of the chest obtained. FINDINGS: The lungs are clear. There are no pleural effusions. The cardiomediastinal silhouette is normal. Spondylotic changes are noted in the mid thoracic spine. XR/XR chest 2V IMPRESSION: No acute cardiopulmonary disease.
[2023-10-03 12:36] VITALS: BP 146/72
[2023-10-03 13:31] VITALS: BP 134/47; PULSE 77; RESP 17; O2SAT 100; BMI 31.4
--- NOTE | 2023-10-03 13:35 | ECG_ITS ---
Test Reason : chest pain Blood Pressure : / mmHG Vent. Rate : 068 BPM Atrial Rate : 068 BPM P-R Int : 132 ms QRS Dur : 082 ms QT Int : 404 ms P-R-T Axes : 055 049 041 degrees QTc Int : 429 ms Normal sinus rhythm Normal ECG When compared with ECG of 31-OCT-2022 15:20, No significant change was found Referred By: Generic ED Physician Electronically Signed By:Shravan Miller
--- NOTE | 2023-10-03 13:42 | ED.CHESTPAIN ---
HPI - Chest Pain General Chief Complaint: Chest Pain Stated Complaint: chest pain Related Data Previous Rx's ?Medication ?Instructions ?Recorded cefpodoxime 200 mg tablet 200 mg PO BID 10 days #20 tabs 10/31/22 Allergies Allergy/AdvReac Type Severity Reaction Status Date / Time ciprofloxacin [From Cipro] Allergy Unknown Verified 10/03/23 13:32 [facility] Past Medical History Medical History (Updated 08/21/23 @ 00:01 by Dayana Peralta) UTI (urinary tract infection) Diabetes mellitus Social History Social History (System 05/12/23 @ 12:01 by Chasidy Swartz) Alcohol intake: current Alcohol intake frequency: a few times a week Substance Use Type: Marijuana Physical Exam Vital Signs: Vital Signs: Last Vital Signs Pulse 77 10/03/23 13:31 Resp 17 10/03/23 13:31 BP 134/47 L 10/03/23 13:31 Pulse Ox 100 10/03/23 13:31 O2 Del Method Room Air 10/03/23 13:31 BMI result Body Mass Index 31.4 Course Course Course Narrative: RME, this is a rapid medical exam performed by Jose Echevarria please refer to primary provider for complete H&P- 53-year-old female past medical history significant for diabetes, coronary artery disease presents for evaluation left-sided chest pain for the last 4 hours. EMS gave aspirin 325 mg. Plan for cardiac workup Discharge Plan Discharge Prescriptions: No Action cefpodoxime 200 mg tablet 200 mg PO BID 10 Days Qty: 20 0RF Rx Instructions: must administer with a meal/food Print Language: Albanian
[2023-10-03 13:58] LABS: MANUAL DIFF FLAG NO
[2023-10-03 14:02] LABS: Basophils Absolute Auto 0.1 X10*3/uL (0.0-0.2); Basophils Percent Auto 0.7 % (0-2); Eosinophils Percent Auto 0.4 % (0-4); Hematocrit 29.3 % (37.0-47.0); Hemoglobin 8.3 g/dl (12.0-16.0); Imm Gran Abs Auto 0.02 X10*3/uL (0.00-0.03); Imm Gran Pct Auto 0.2 % (0.0-0.4); Lymphocytes Absolute Auto 1.9 X10*3/uL (1.2-4.9); Lymphocytes Percent Auto 23.3 % (20-40); Mean Corpuscular HGB Conc 28.3 g/dl (31.0-35.0); Monocytes Absolute Auto 0.3 X10*3/uL (0.1-1.2); Monocytes Percent Auto 4.2 % (2-11); Neutrophils Absolute Auto 5.8 x10*3/uL (2.0-8.3); Neutrophils Percent Auto 71.2 % (45-73); Red Blood Count 3.96 X10*6/uL (4.20-5.50); Red Cell Distribution Width 17.9 % (11.0-16.0); White Blood Count 8.2 X10*3/uL (4.8-10.8)
[2023-10-03 14:09] LABS: Prothrombin Time 12.5 SEC (11.1-13.3)
[2023-10-03 14:18] LABS: Alanine Aminotransferase 11 U/L (0-31); Alkaline Phosphatase 78 U/L (39-117); Anion Gap 13 (12-20); Aspartate Amino Transferase 16 U/L (5-31); Bilirubin Total 0.3 mg/dL (0.0-1.0); Blood Urea Nitrogen 11 mg/dL (9-16); Calcium 9.3 mg/dL (8.4-10.2); Carbon Dioxide 25 mmol/L (22-29); Chloride 109 mmol/L (96-108); Creatinine Clr Calc Pharmacy 79.4; Estimated Glomerular Filt Rate > 60; Glucose Random 101 mg/dL (60-115); Lipase 36 U/L (8-78); Potassium 3.9 mmol/L (3.3-5.1); Sodium 143 mmol/L (135-145)
[2023-10-03 14:19] LABS: Troponin-I High Sensitivity 2.7 ng/L (<3.5-17.0)
[2023-10-03 14:38] LABS: Platelet Count 211 X10*3/uL (160-400)
[2023-10-03 14:40] LABS: Mean Platelet Volume 9.9 fL (9.4-12.3)
[2023-10-03 14:41] LABS: Influenza A PCR NEGATIVE (Negative); Influenza B PCR NEGATIVE (Negative); Resp Syncy Virus RNA Qual PCR NEGATIVE (Negative); SARS COV2 PCR INHOUSE NEGATIVE (Negative)
--- NOTE | 2023-10-03 18:50 | PC.NURSE ---
no call for bed at 1850
== END 2023-10-03 19:42 | disposition left against medical advice (07) ==
LOC: HO.ED 19:06
PROVIDERS: Physician Assistant; Emergency Provider Emergency Medicine
DX: R07.9 Chest pain, unspecified (principal); E11.8 Type 2 diabetes mellitus with unspecified complications; Z03.818 Encounter for observation for suspected exposure to other biological agents ruled out
CPT/HCPCS: 0241U; 71046; 80053; 83690; 84484; 85025; 85610; 93005; 99281; 99283

== ENCOUNTER → 2023-10-03 13:35 | Outpatient (BNV) | payer MEDICAID, SELFPAY | PROVIDERS: Visit Provider Internal Medicine Cardiovascular Disease | DX: R07.9 Chest pain, unspecified (principal) | CPT/HCPCS: 93010 ==

== ENCOUNTER 2023-10-30 17:45 | Outpatient (REF) | payer MEDICAID, SELFPAY | END 2023-10-30 17:46 | disposition home or self-care (01) | LOC: HO.HHCLNP 17:45 | PROVIDERS: Visit Provider Nurse Practitioner Family | DX: R30.0 Dysuria (principal) | CPT/HCPCS: 87086; 87088; 87186 ==

== ENCOUNTER 2025-01-16 03:30 | Emergency (ER) | payer MEDICARE, SELFPAY ==
--- NOTE | ~2025-01-16 | CT_ITS ---
EXAMINATION: CT ABDOMEN PELVIS WITH IV CONTRAST HISTORY: pain/distention, r/o SBO COMPARISON: Comparison is made with the prior examination dated 723. TECHNIQUE: CT scan of the abdomen and pelvis was performed following administration of 85 mL Omnipaque 350 using standard departmental protocol. Coronal and sagittal reformatted images were generated and reviewed. The patient received oral contrast material. This CT exam was performed with one or more of the following dose reduction techniques: automated exposure control, adjustment of the mA and/or kV according to patient size, use of iterative reconstruction technique. DLP: 633 mGy-cm FINDINGS: LOWER CHEST: The visualized lung bases are clear. There is no pleural effusion. CARDIOVASCULATURE: The heart is normal in size. There is no pericardial effusion. LIVER: The liver is normal in size and contour, but demonstrates decreased attenuation consistent with steatosis. No liver mass is identified. The hepatic and portal veins are patent. GALLBLADDER / BILE DUCTS: The gallbladder is surgically absent. There is no intra or extrahepatic biliary ductal dilatation. SPLEEN: The spleen is normal in size. No focal splenic lesion is identified. PANCREAS: The pancreas is unremarkable in appearance. ADRENAL GLANDS: Within normal limits. KIDNEYS/RETROPERITONEUM: No renal calculi are identified. There is no hydronephrosis. No renal masses are identified. LYMPH NODES: No abdominal or pelvic lymphadenopathy. VASCULATURE: The abdominal aorta is normal in caliber. MESENTERY/PERITONEUM: There is a small amount of free fluid in the right lower quadrant.. No masses. There is no free intraperitoneal gas. STOMACH: There is a small hiatal hernia. The remainder of the stomach is collapsed. SMALL BOWEL: The proximal small bowel is decompressed. The mid small bowel is mildly dilated, although these are the loops containing oral contrast material. The distal ileum is collapsed. COLON: The colon is unremarkable. Oral contrast is seen in the colon. APPENDIX: The appendix is not seen, however no inflammatory changes are seen adjacent to the cecum. URINARY BLADDER/PELVIC ORGANS: The urinary bladder is collapsed, limiting evaluation. The uterus is enlarged, and demonstrates an 8.8 x 7.3 cm posterior fibroid without change. BONES / SOFT TISSUES: No suspicious bony or soft tissue abnormalities. CT/CT abdomen pelvis w IV con IMPRESSION: 1. Mild dilatation of mid small bowel loops which contain oral contrast material. Early or partial small bowel obstruction is not excluded. Oral contrast is seen in the colon excluding complete small bowel obstruction. 2. Fibroid uterus. 3. Hepatic steatosis. Electronically signed by: Avery Lorenzana MD 01/16/2025 08:49 AM EDT
[2025-01-16 03:35] VITALS: BP 130/77; PULSE 87; RESP 18; TEMP 36.4; O2SAT 97; BMI 40.3
[2025-01-16 03:59] LABS: MANUAL DIFF FLAG NO
[2025-01-16 04:00] LABS: Hematocrit 43.8 % (37.0-47.0); Hemoglobin 14.0 g/dl (12.0-16.0); Imm Gran Abs Auto 0.05 X10*3/uL (0.00-0.03); Imm Gran Pct Auto 0.3 % (0.0-0.4); Lymphocytes Absolute Auto 2.6 X10*3/uL (1.2-4.9); Mean Corpuscular HGB Conc 32.0 g/dl (31.0-35.0); Mean Corpuscular Hemoglobin 27.4 pg (27.0-33.0); Mean Corpuscular Volume 85.7 fL (80.0-98.0); NRBC Abs Auto 0.000 X10*3/uL (0.0-0.012); NRBC Pct Auto 0.0 /100WBC (0.0-0.2); Platelet Count 351 X10*3/uL (160-400); Red Blood Count 5.11 X10*6/uL (4.20-5.50); White Blood Count 16.5 X10*3/uL (4.8-10.8)
--- OUTSIDE RECORDS SUMMARY | 2025-01-16 04:06 | XMS_ITS | Clinical Summary ---
Author Organization formerly [facility] Address [address] [place] [address] Care Team Providers Care Attendance Clerk Name Role Phone Unavailable Primary Care Provider Unavailabl e Social History Tobacco Use Types Packs/Day Years Used Date Smoking Tobacco: Never Assessed Comments Unknown Sex and Gender Information Value Date Recorded Sex Assigned at Not on file Legal Sex Female 7:15 AM EST Gender Identity Not on file Sexual Orientation Not on file Plan of Treatment Health Maintenance Due Date Last Done Comments Breast Cancer Screening 1970 CT Colonography 1970 Colonoscopy 1970 Colorectal Cancer Screening 1970 FIT-DNA (Cologuard) 1970 FIT 1970 FOBT 1970 Flex Sigmoidoscopy - 5y 1970 HIV Screening 1970 Hepatitis B Vaccines (1 of 3 - 19+ 3-dose series) 1989 Pap Smear 07/30/1991 Cervical Cancer Screening 2000 HPV/Cotest 2000 COVID-19 Vaccine ( season) 2024 05/11/2023, 06/08/2022, 02/11/2022, Additional history exists Influenza Vaccine (#1) 2024 , 02/11/2022, 05/07/2018, Additional history exists DTaP,Tdap,and Td Vaccines (3 - Td or Tdap) 06/06/2032 06/06/2022, 01/13/2015 Zoster Vaccines Completed 06/08/2022, 03/15/2022 Diabetes: Hemoglobin A1C Discontinued 024, 06/09/2022, 05/30/2018 Pneumococcal Vaccine, 50+ Years Completed 10/12/2023, 05/07/2018 HPV Vaccines Aged Out No longer eligi ble based on patient's age to complete this topic Hepatitis A Vaccines Aged Out No long er eligible based on patient's age to complete this topic MMR Vaccines Aged Out No longer eligi ble based on patient's age to complete this topic Meningococcal Vaccine Aged Out No neal marleny eligible based on patient's age to complete this topic Procedures Procedure Name Priority Date/Time Associated Diagnosis Comments HEMOGLOBIN A1C Routine 05/30/2018 9:19 AM EST from Last 3 Months or Most Recently Relevant to Health Maintenance Results * Hemoglobin A1c (05/30/2018 9:19 AM EST) Hemoglobin A1C 5.2 4.4 - 6.4 % 05/30/2018 3:10 PM EST [facility] Blood specimen (specimen) Venous blood specimen / Unknown 05/30/2018 9:19 AM EST 05/30/2018 2:28 PM EST Narrative [facility] - 05/30/2018 3:10 PM EST HbA1C greater than or equal to 6.5% diagnosis for Diabetes Mellitus. In the absence of unequivocal hyperglycemia, test should be confirmed by repeat testing. ADA Guidelines: Diagnosis and Classification of Diabetes Mellitus (position statement), Diabetes Care 2010; 33:S62-9. Hemoglobin A1C results may be inaccurate if abnormal hemoglobins are present. Diandra Horowitz [employer] LAB BLOOD ORDERABLES NO STA T Final Result [facility] [address] [place] [address], [place] [phone] from Last 3 Months or Most Recently Relevant to Health Maintenance Insurance MEDICAID [id number] MEDICARE PART A & B * Guarantor: MALLIKA KUHN Account Type Relation to Patient Date of Phone Billing Address [employer] [facility] [employer] [facility] [employer] [facility] [address] [facility] [address] [place] [phone]
--- OUTSIDE RECORDS SUMMARY | 2025-01-16 04:06 | XMS_ITS | Clinical Summary ---
Author Organization [facility] Address [address] [place] [address] Care Team Providers Care Photo Equipment Technician Name Role Phone [facility], [facility] Primary Care Provider + Allergies Active Allergy Reactions Criticality Noted Date Comments Ciprofloxacin Unknown/Patient and Family Unable to Define Medium 06/16/2017 Medications metFORMIN (GLUCOPHAGE) 1000 MG tablet Take 500 mg by mouth daily. 9 Active simvastatin (ZOCOR) 10 MG tablet Take 10 mg by mouth nightly. Active lisinopril (PRINIVIL,ZeSTRIL) 2.5 MG tablet Take 2.5 mg by mouth daily. Active methimazole (TAPAZOLE) 10 MG tabletIndications:H yperthyroidism Take 1 tablet (10 mg total) by mouth daily. 30 tablet 3 9 Active naproxen (NAPROSYN) 500 MG tablet Take 1 tablet (500 mg total) by mouth 2 (two) times a day with meals. Take with food 20 tablet 2 1 Active meclizine (ANTIVERT) 25 MG tablet Take 1 tablet (25 mg total) by mouth Every 6 (six) to 8 (eight) hours as needed for dizziness. 15 tablet 4 Active ondansetron (ZOFRAN-ODT) 4 MG disintegrating tablet Take 1 tablet (4 mg total) by mouth 3 times daily (every 8 hours) as needed for nausea or vomiting. Place tablet on tongue to dissolve. 12 tablet 4 Active traMADol (ULTRAM) 50 MG tablet Take 1 tablet (50 mg total) by mouth 3 times daily (every 8 hours) as needed for severe pain. 9 tablet 4 Active meloxicam (MOBIC) 7.5 MG tablet Take 1 tablet (7.5 mg total) by mouth daily. 30 tablet 4 Active Active Problems Problem Noted Date Diagnosed Date Pain of finger of right hand 01/05/2021 Closed nondisplaced fracture of phalanx of right ring finger 10/16/2020 Immunizations Immunization Administration Dates Next Due Influenza Inactivated/Split Preservative Free IM 05/07/2018 Influenza, Unspecified 01/21/2016,01/13/2015 Pneumococcal Polysaccharide 23-Valent 05/07/2018 Tdap 01/13/2015 Family History Medical History Relation Name Comments Diabetes Mother Diabetes Sister Relation Name Status Comments Brother Alive Mother Alive Sister Social History Tobacco Use Types Packs/Day Years Used Date Smoking Tobacco: Never Smokeless Tobacco: Never Alcohol Use Standard Drinks/Week Comments Not Currently 0 (1 standard drink = 0.6 oz pur e alcohol) RARELY Comments No Sex and Gender Information Value Date Recorded Sex Assigned at Female 12/19/2023 8:28 PM EDT Legal Sex Female 2:13 PM EDT Gender Identity Female 12/19/2023 8:28 PM EDT Sexual Orientation Heterosexual (straight) 12/18 8:28 PM EDT Last Filed Vital Signs Vital Sign Reading Time Taken Comments Blood Pressure 124/77 03/04/2024 10:04 PM EST Pulse 75 03/04/2024 10:04 PM EST Temperature 36.9 C (98.4 F) 03/04/2024 10:04 PM EST Respiratory Rate 18 03/04/2024 10:04 PM EST Oxygen Saturation 97% 03/04/2024 10:04 PM EST Inhaled Oxygen Concentration - - Weight 72.6 kg (160 lb) 03/04/2024 1:03 PM EST Height 144.8 cm (4' 9 ) 03/04/2024 1:03 PM EST Body Mass Index 34.62 03/04/2024 1:03 PM EST Plan of Treatment Health Maintenance Due Date Last Done Comments Hepatitis B Vaccines (1 of 3 - 19+ 3-dose series) 1989 Pap Smear (Ages 21-65) 07/30/1991 Mammogram 2010 Colonoscopy 07/30/2015 Pneumococcal Vaccines 50+ (2 of 2 - PCV) 2020 05/07/2018 RSV Vaccine 50 years and old er and Patients (1 - Risk 50-74 years 1-dose series) 2020 Zoster (Shingles) Vaccine (1 of 2) 2020 Influenza Vaccine 10/25/2024 01/25/2023, , 05/07/2018, Additional history exists COVID-19 Vaccine (7 - 2024-2 6 season) 2024 05/11/2023, 06/08/2022, 02/11/2022, Additional history exists DTaP/Tdap/Td Vaccines (2 - T d or Tdap) 01/13/2025 01/13/2015 Lipid Panel Discontinued 02/02/2015 Hepatitis C Virus Screening Completed 06/16/2017 Microalbumin/Creatinine Rati o Urine Discontinued 09/23/2021, 05/09/2018 HIV Screening Completed 02/01/2022, 05/26, 02/12/2015 Hemoglobin A1C Discontinued 02/01/2022, 08/27, 05/30/2018, Additional history exists Procedures Procedure Name Priority Date/Time Associated Diagnosis Comments MICROALBUMIN, CREATININE, URINE, RANDOM Routine 05/09/2018 4:30 PM EST Type 2 diabetes mellitus without complication, without long-term current use of insulin (HCC) HEMOGLOBIN A1C Routine 05/09/2018 4:30 PM EST Type 2 diabetes mellitus without complication, without long-term current use of insulin (HCC) HIV 1/2 AG/AB CMIA REFLEX TO CONFIRMATION Routine 06/16/2017 11:21 AM EDT HEPATITIS PANEL, ACUTE Routine 06/16/2017 11:21 AM EDT HXHOCC LIPID PANEL Routine 02/02/2015 8: 31 AM EST from Last 3 Months or Most Recently Relevant to Health Maintenance Results * Microalbumin, Creatinine, Urine, Random (05/09/2018 4:30 PM EST) Creatinine, Urine, Random 92 20 - 275 mg/dL [facility] Microalbumin, Urine, Random 0.2 See Note: mg/dL [facility] Comment: Reference Range: Reference Range Not established Microalbumin/Creat inine Ratio 2 <30 mcg/mg creat [facility] Comment: The ADA defines abnormalities in albumin excretion as follows: Category Result (mcg/mg creatinine) Normal <30 Microalbuminuria 30-299 Clinical albuminuria > OR = 300 The ADA recommends that at least two of three specimens collected within a 3-6 month period be abnormal before considering a patient to be within a diagnostic category. Urine Voided urine specimen / Unknown 05/09/2018 4:30 PM EST 05/09/2018 4:30 PM EST Narrative [facility] - 05/14/2018 4:39 PM EST FASTING:NO FASTING: NO Resulting Agency Comment Performing Organization Information: Site ID: [id number] Name: [facility] Address: [address] [place] [address], [place] [address] Director: Reinier Solis MD Segun Syed DO URINE ORDERABLES Final Result [facility] [address] [place] [address], [place] [address] * Hemoglobin A1c (05/09/2018 4:30 PM EST) Hemoglobin A1C 5.0 <5.7 % of total Hgb [facility] Comment: For the purpose of screening for the presence of diabetes: <5.7% Consistent with the absence of diabetes 5.7-6.4% Consistent with increased risk for diabetes (prediabetes) > or =6.5% Consistent with diabetes This assay result is consistent with a decreased risk of diabetes. Currently, no consensus exists regarding use of hemoglobin A1c for diagnosis of diabetes in children. According to [place] Diabetes Association (ADA) guidelines, hemoglobin A1c <7.0% represents optimal control in non- diabetic patients. Different metrics may apply to specific patient populations. Standards of Medical Care in Diabetes(ADA). Blood specimen (specimen) Blood specimen / Unknown 05/09/2018 4:30 PM EST 05/09/2018 4:30 PM EST Narrative [facility] - 05/14/2018 4:39 PM EST FASTING:NO FASTING: NO Resulting Agency Comment Performing Organization Information: Site ID: [id number] Name: [facility] Address: [address] [place] [address], [place] [address] Director: Reinier Solis MD Segun Syed DO LAB BLOOD ORDERABLES Final Resul t Performing Organization Address City/[facility] Co de Phone Number [facility] [address] [place] [address], [place] [address] * HIV 1/2 Ag/Ab CMIA Reflex to Confirmation (06/16/2017 11:21 AM EDT) Pathologist [facility] [place] HIV 1/2 Ag/Ab CMIA Nonreactive Nonreactive [facility]ITAL [facility] Comment: Results show no evidence of infection by HIV 1/2. If clinically indicated, repeat CMIA or test by nucleic acid amplification. Performed at [facility], [place], [place] License 0385 EnertivIA [id number] 06/16/2017 11:2 1 AM EDT 06/16/2017 11:35 AM EDT us Nilo Soares MD LAB BLOOD ORDERABLES Final Resu lt Performing Organization Address [facility] Co de Phone Number HOSPITAL LAB * Hepatitis Panel, Acute (06/16/2017 11:21 AM EDT) Hepatitis A Antibody IgM 0.10 <0.80 [facility] Comment:Nonreactive Hepatitis B Core Antibody IgM Nonreactive Nonreactive [facility] Hepatitis B Surface Ag Screen Nonreactive Nonreactive [facility] Hepatitis C Antibody 0.14 0.00 - 0.79 S/CO ratio [facility]ITAL [facility] Comment:Nonreactive Hepatitis Interpretati on: Results inconsistent with acute Hepatitis A, B or C Virus infection. HOSPITAL LAB Comment:Performed at [facility], [place], [place] License 0385 CLIA [id number] Blood specimen (specimen) Blood specimen / Unknown 06/16/2017 11:21 AM EDT 06/16/2017 11:35 AM EDT us Nilo Soares MD LAB BLOOD ORDERABLES Final Resu lt HOSPITAL LAB * (ABNORMAL) Lipid Panel (02/02/2015 8:31 AM EST) Cholesterol, Total 213(H) 0 - 199 mg/dL [facility] CONVERSION Triglyceride 132 0 - 199 mg/dL [facility] CONVERSION Cholesterol, HDL 93.0 >=40.0 mg/dL [facility] CONVERSION LDL Calculated <=159 mg/dL [facility] CONVERSION Risk Factor Interpretive Data: RISK FACTOR INTERPRETATION TABLE. MEN WOMEN. 1/2 AVERAGE 3.43 3.27. AVERAGE 4.97 4.44. 2X AVERAGE 9.55 7.05. 3X AVERAGE 23.39 11.04. . CERNER CONVERSION 02/02/2015 8:31 AM EST us Lelo Batista MD HX LAB Final Result [facility]ERNER CONVERSION from Last 3 Months or Most Recently Relevant to Health Maintenance Insurance [facility] COMMERCIAL [facility] [place] [employer] [address] [place] [address] Care Teams Photo Equipment Technician Relationship Specialty Start Date End Date [facility] [address] [place] [address] PCP - General 01/26/20
--- OUTSIDE RECORDS SUMMARY | 2025-01-16 04:06 | XMS_ITS | Encounter Summary ---
Author Organization [facility] Address [address] [place] [address] Care Team Providers Care Asp Net Software Developer Name Role Phone [facility] Primary Care Provider + Encounter Details Date Type Department Care Team (Late st Contact Info) Description 09/08/2020 Scanned Document [facility] General Surgery [address] [phone] Mannie Tidwell MD [address] [place] [address] Social History Tobacco Use Types Packs/Day Years Used Date Smoking Tobacco: Never Smokeless Tobacco: Never Alcohol Use Standard Drinks/Week Comments Yes 0 (1 standard drink = 0.6 oz pur e alcohol) RARELY Comments No Sex and Gender Information Value Date Recorded Sex Assigned at Female 12/19/2023 8:28 PM EDT Legal Sex Female 2:13 PM EDT Gender Identity Female 12/19/2023 8:28 PM EDT Sexual Orientation Heterosexual (straight) 12/18 8:28 PM EDT documented as of this encounter Plan of Treatment Not on file documented as of this encounter Visit Diagnoses Not on filedocumented in this encounter Care Teams Asp Net Software Developer Relationship Specialty Start Date End Date [facility] [address] [place] [address] PCP - General 01/26/20 documented as of this encounter
--- OUTSIDE RECORDS SUMMARY | 2025-01-16 04:06 | XMS_ITS | Encounter Summary ---
Author Organization [facility] Address [address] [place] [address] Care Team Providers Care Medical Representative Name Role Phone [facility] Primary Care Provider + Reason for Visit * Reason Onset Date Comments Medication Refill 02/26/2021 Encounter Details Date Type Department Care Team (Late st Contact Info) Description 02/26/2021 Refill [facility] [address] [place] [address] Ian Alfred MD [address] [place] [phone] Hyperthyroidism Social History Tobacco Use Types Packs/Day Years [...] Orientation Heterosexual (straight) 12/18 8:28 PM EDT COVID-19 Exposure Response Date Recorded In the last month, have you been in contact with someone who was confirmed or suspected to have Coronavirus / COVID-19? No / Unsure 02/02/2021 11:37 AM EST documented as of this encounter Miscellaneous Notes * Telephone Encounter - Sanjuanita Engel MA - 02/26/2021 7:29 AM EST Patient was only seen once and hasn't seen the provider since 2018. Please contact patient. documented in this encounter Plan of Treatment Not on file documented as of this encounter Visit Diagnoses Diagnosis Hyperthyroidism Thyrotoxicosis without mention of goiter or other cause, without mention of thyrotoxic crisis or storm documented in this encounter Care Teams Medical Representative Relationship Specialty Start Date End Date [facility] [address] [place] [address] PCP - General 01/26/20 documented as of this encounter
[2025-01-16 04:21] LABS: Alanine Aminotransferase 28 U/L (0-31); Albumin Level 4.3 g/dL (3.5-5.0); Alkaline Phosphatase 152 U/L (39-117); Anion Gap 15 (12-20); Aspartate Amino Transferase 25 U/L (5-31); Blood Urea Nitrogen 16 mg/dL (9-16); Calcium 9.1 mg/dL (8.4-10.2); Carbon Dioxide 21 mmol/L (22-29); Chloride 107 mmol/L (96-108); Creatinine Clr Calc Pharmacy 93.2; Estimated Glomerular Filt Rate > 60; Lipase 26 U/L (8-78); Magnesium 2.1 mg/dL (1.6-2.6); Potassium 4.1 mmol/L (3.3-5.1); Sodium 139 mmol/L (135-145); Total Protein 7.5 g/dL (6.5-8.0)
--- NOTE | 2025-01-16 04:34 | ED.GENADULT ---
HPI - General Adult General Chief complaint: Abdominal Pain Stated complaint: abd pain Time Seen by Provider: 01/16/25 03:44 Source: patient Limitations: language barrier History of Present Illness ED Provider: Mimi Eldridge PA-C HPI narrative: 54-year-old female with a history of morbid obesity, diabetes, prior ileus, who was now status post cholecystectomy presents with generalized abdominal pain times 2 days. Pain originates mid abdomen with radiation to the back. Associated abdominal distention, nausea vomiting and diarrhea. Patient states she is not passing gas from below. She has only had 3 episodes of diarrhea, denies constipation. Denies recent travel, use of antibiotics or hospitalization. Related Data Previous Rx's ?Medication ?Instructions ?Recorded cefpodoxime 200 mg tablet 200 mg PO BID 10 days #20 tabs 10/31/22 hydrocodone 5 mg-acetaminophen 325 1 tab PO Q6H PRN pain #10 tabs 01/16/25 mg tablet ondansetron 4 mg disintegrating 4 mg PO Q8H PRN nausea and 01/16/25 tablet vomiting #20 tabs Allergies Allergy/AdvReac Type Severity Reaction Status Date / Time ciprofloxacin (From Cipro) Allergy Unknown Verified 01/16/25 03:36 Review of Systems Review of Systems: Yes all other systems are reviewed and are negative Constitutional: Constitutional: Denies fatigue and Denies fever(s) Cardiovascular: Cardiovascular: Denies chest pain and Denies dyspnea Respiratory: Respiratory: Denies cough and Denies dyspnea Gastrointestinal: Gastrointestinal: Reports abdominal pain, Reports bloating, Denies constipation, Reports diarrhea, Reports nausea and Reports vomiting Genitourinary: Genitourinary: Denies dysuria Musculoskeletal: Musculoskeletal: Denies back pain Endocrine: Endocrine: Denies fatigue [facility] Past Medical History Attestation statement: The following information was validated with the patient. Medical History (Updated 01/16/25 @ 04:46 by NADIA Cruz) UTI (urinary tract infection) Diabetes mellitus Social History Social History (System 05/12/23 @ 12:01 by Chasidy Swartz) Alcohol intake: current Alcohol intake frequency: a few times a week Smoked in Last 30 Days: No Use of substances other than those prescribed or required for medical reasons: Yes Substance Use Type: Crack/Cocaine Advance Directives: No Advance Directives Information Provided: Yes Patient : No Physical Exam ED Vital Signs: Vital Signs - 24 hr 01/16/25 03:35 01/16/25 07:01 01/16/25 11:24 Temperature 97.5 F 97.8 F Pulse Rate 87 90 80 Respiratory Rate 18 16 20 Blood Pressure 130/77 116/56 L 129/57 L Pulse Oximetry 97 95 97 Oxygen Delivery Method Room Air Room Air Room Air 01/16/25 11:25 Temperature 97.8 F Pulse Rate 80 Respiratory Rate 20 Blood Pressure 129/57 L Pulse Oximetry 97 Oxygen Delivery Method Room Air BMI result Body Mass Index 40.3 Const Other: Alert, appears older than stated age Orientation/consciousness: patient oriented x3 Resp Effort & Inspection: normal respiratory effort Cardio Other: Normal peripheral perfusion GI Other: Abdomen is somewhat distended, obese, moderate to severe tenderness hypogastric region, with mild involuntary guarding, some degree of palpable pain across entire abdomen Skin Other: Warm dry no rash Neuro General: patient oriented x3, gait normal, no focal motor deficits and CN's II-XI intact bilaterally Psych Other: Software Course Reevaluation(s) Reevaluation #1: CT abdomen and pelvis pending at the time of sign-out Reevaluation #2: 5:24 AM [facility]/16[facility] Assumed care of this patient who has pending oral and IV contrasted CT to exclude SBO or other emergent intra-abdominal pathology states she has some pain she is able to eat and drink I did talk to Dr. Cotton does not feel this is surgical. will repeat exam after meds and PO challenge. she is having BM no vomiting seems unlikely to be SBO Sarai Langston DO 01/16/25 1046 Reevaluation #3: feels better, no obstruction, will DC on clear liquids, pain control used metal fabricator helper Sarai Langston DO 01/16/25 1122 Medications Administered Discontinued Medications Generic Name Dose Route Start Last Admin Trade Name Freq PRN Reason Stop Dose Admin Al Hydroxide/Mg Hydroxide 15 ml 01/16/25 10:26 01/16/25 10:42 Magnesium Hydrox/Alum Hydrox 30 Ml Oral.Susp PO 01/16/25 10:27 15 ml ONCE ONE Administration Diatrizoate Meglum/Diatrizoate Sod 30 ml 01/16/25 08:27 01/16/25 08:27 Diatrizoate Meglumine, Sodium 30 Ml Solution PO 01/16/25 08:28 30 ml ONCE ONE Administration Sodium Chloride 1,000 mls @ 999 mls/hr 01/16/25 03:45 01/16/25 05:48 Ns IV 01/16/25 04:45 Infused .Q1H1M NONA Infusion Lactated Ringer's 1,000 mls @ 100 mls/hr 01/16/25 06:45 01/16/25 11:23 Lr IVCONT Infused .Q10H NONA Infusion Acetaminophen 1,000 mg in 100 mls @ 400 mls/hr 01/16/25 10:26 01/16/25 11:00 Ofirmev IV 01/16/25 10:40 Infused ONCE ONE Infusion Iohexol 100 ml 01/16/25 08:26 01/16/25 08:27 Iohexol 350 Mg/Ml 100 Ml Infus..Btl IV 01/16/25 08:27 85 ml ONCE ONE Administration Lidocaine HCl 15 ml 01/16/25 10:26 01/16/25 10:42 Lidocaine Hcl Viscous 2 % 15 Ml Solution MUCOUS MEM 01/16/25 10:27 15 ml ONCE ONE Administration Morphine Sulfate 4 mg 01/16/25 03:58 01/16/25 04:11 Morphine Sulfate 4 Mg/Ml Cartridge IVPUSH 01/16/25 03:59 4 mg ONCE ONE Administration Protocol Morphine Sulfate 4 mg 01/16/25 05:53 01/16/25 06:58 Morphine Sulfate 4 Mg/Ml Cartridge IVPUSH 01/16/25 05:54 4 mg ONCE ONE Administration Protocol Ondansetron HCl 4 mg 01/16/25 03:44 01/16/25 04:11 Ondansetron Hcl 4 Mg/2 Ml Vial IVPUSH 01/16/25 03:45 4 mg ONCE ONE Administration Medical Decision Making Medical Decision Making MDM Narrative: 54-year-old female with a history of morbid obesity, diabetes, prior ileus, who was now status post cholecystectomy presents with generalized abdominal pain times 2 days. Pain originates mid abdomen with radiation to the back. Associated abdominal distention, nausea vomiting and diarrhea. Patient states she is not passing gas from below. She has only had 3 episodes of diarrhea, denies constipation. Denies recent travel, use of antibiotics or hospitalization. Problem: Obesity, diabetes prior ileus History: Per patient I have considered the following differential diagnoses: Bowel obstruction, ileus, viral gastroenteritis, traveler's diarrhea, C diff, Plan: The patient is here with some obstructive symptoms, but is also having diarrhea. She has no risk factors for traveler's diarrhea or C diff, given her prior history of ileus we will obtain a CT scan. We will screen basic labs. Giving Zofran morphine and fluid for her pain. I have independently reviewed the following tests: Labs: Leukocytosis of 16.5 with left shift, not anemic, no electrolyte abnormalities, LFTs are normal CT abdomen and pelvis: Differential Diagnosis Differential Diagnoses: The differential diagnosis associated with the presentation includes See medical decision-making Admission/Observation Consideration of admission/observation: Escalation of care including admission/observation considered Lab Data MDM Lab Attestation statement: I reviewed the patient's lab results. 01/16/25 03:49 01/16/25 03:49 Labs: Lab Results 01/16/25 01/16/25 Range/Units 03:49 05:28 WBC 16.5 H (4.8-10.8) X10*3/uL RBC 5.11 D (4.20-5.50) X10*6/uL Hgb 14.0 D (12.0-16.0) g/dl Hct 43.8 D (37.0-47.0) % MCV 85.7 (80.0-98.0) fL MCH 27.4 (27.0-33.0) pg MCHC 32.0 (31.0-35.0) g/dl RDW 14.3 (11.0-16.0) % Plt Count 351 D (160-400) X10*3/uL MPV 9.4 (9.4-12.3) fL Immature Gran % (Auto) 0.3 (0.0-0.4) % Neut % (Auto) 78.1 H (45-73) % Lymph % (Auto) 15.7 L (20-40) % [place] % (Auto) 4.3 (2-11) % Eos % (Auto) 1.3 (0-4) % Baso % (Auto) 0.3 (0-2) % Lymph # (Auto) 2.6 (1.2-4.9) X10*3/uL [place] # (Auto) 0.7 (0.1-1.2) X10*3/uL Eos # (Auto) 0.2 (0.0-0.4) X10*3/uL Baso # (Auto) 0.1 (0.0-0.2) X10*3/uL Abs Immat Gran (auto) 0.05 H (0.00-0.03) X10*3/uL Absolute Neuts (auto) 12.9 H (2.0-8.3) x10*3/uL Absolute Nucleated RBC 0.000 (0.0-0.012) X10*3/uL Nucleated RBC % (auto) 0.0 (0.0-0.2) /100WBC Sodium 139 (135-145) mmol/L Potassium 4.1 (3.3-5.1) mmol/L Chloride 107 (96-108) mmol/L Carbon Dioxide 21 L (22-29) mmol/L Anion Gap 15 (12-20) BUN 16 (9-16) mg/dL Creatinine 0.62 (0.5-1.4) mg/dL Estim Creat Clear Calc 93.2 Estimated GFR > 60 Random Glucose 223 H (60-115) mg/dL Calcium 9.1 (8.4-10.2) mg/dL Magnesium 2.1 (1.6-2.6) mg/dL Total Bilirubin 0.3 (0.0-1.0) mg/dL AST 25 (5-31) U/L ALT 28 (0-31) U/L Alkaline Phosphatase 152 H (39-117) U/L Total Protein 7.5 (6.5-8.0) g/dL Albumin 4.3 (3.5-5.0) g/dL Lipase 26 (8-78) U/L Urine Color Yellow Urine Appearance Clear Urine pH 5.5 (5.0-9.0) Ur Specific [place] 1.020 (1.005-1.025) Urine Protein Negative (Neg-Trace) mg/dL Urine Glucose (UA) 500 H (Negative) mg/dL Urine Ketones Negative (Negative) mg/dL Urine Blood Moderate (2+) H (Negative) Urine Nitrite Negative (Negative) Ur Leukocyte Esterase Negative (Negative) Urine RBC 6-10 H (0-2) /HPF Urine WBC 0-5 (0-5) /HPF Ur Squamous Epith Cells 6-10 (0-2) /HPF Calcium Oxalate Crystal Present Urine Bacteria None Seen (None Seen) Hyaline Casts 0-2 (0-2) /LPF Discharge Plan Discharge Clinical Impression: Abdominal pain Patient Disposition: Home, Self-Care Instructions: Abdominal Pain (ED) Additional Instructions: clear liquid diet for 48 hours use pain medications as needed return for worsening pain, bloody stools, fevers, or any other concerns rest and stay hydrated repeat blood tests for CBC and liver panel in one week with your doctor to make sure they remain normal Prescriptions: New hydrocodone-acetaminophen 5-325 mg tablet 1 tab PO Q6H PRN (Reason: pain) Qty: 10 0RF Rx Instructions: partial fill okay; Partial Fill upon patient request. ondansetron 4 mg tablet,disintegrating 4 mg PO Q8H PRN (Reason: nausea and vomiting) Qty: 20 0RF No Action cefpodoxime 200 mg tablet 200 mg PO BID 10 Days Qty: 20 0RF Rx Instructions: must administer with a meal/food Interventions: ED Discharge Assessment Last Done: 01/16/25 11:24 Discharge Date/Time: 01/16/25 11:27 Print Language: Albanian
[2025-01-16 05:32] LABS: Appearance Urine Clear; Glucose Urine UA 500 mg/dL (Negative); PH 5.5 (5.0-9.0); Specific Gravity - Urine 1.020 (1.005-1.025); UMIC TRIGGER UACC YES
[2025-01-16] MEDS: Lactated Ringers 1,000 ML 100 ML IVCONT (06:58)
[2025-01-16 07:01] VITALS: BP 116/56; PULSE 90; RESP 16; O2SAT 95
--- NOTE | 2025-01-16 07:07 | PC.NURSE ---
pt tolerated contrast drink well.
[2025-01-16] MEDS: iohexoL 350 MG/ML 100 ML INFUS..BTL IV (08:27)
[2025-01-16] MEDS: Magnesium Hydrox/Alum Hydrox 30 ML ORAL.SUSP 15 ML PO (10:42)
[2025-01-16] MEDS: Lidocaine HCl Viscous 2 % 15 ML SOLUTION MUCOUS MEM (10:42)
[2025-01-16 11:24] VITALS: BP 129/57; PULSE 80; RESP 20; TEMP 36.6; O2SAT 97
[2025-01-16 11:25] VITALS: BP 129/57; PULSE 80; RESP 20; TEMP 36.6; O2SAT 97
== END 2025-01-16 11:27 | disposition home or self-care (01) ==
PROVIDERS: Emergency Medicine; Emergency Provider Emergency Medicine
DX: R10.9 Unspecified abdominal pain (principal); E11.9 Type 2 diabetes mellitus without complications; Z90.49 Acquired absence of other specified parts of digestive tract; R11.2 Nausea with vomiting, unspecified; R19.7 Diarrhea, unspecified
CPT/HCPCS: 36415; 74177; 80053; 81001; 83690; 83735; 85025; 96361; 96365; 96375; 96376; 99284; 99285; J0131; J2270; J2405; J7120; Q9967

== ENCOUNTER → 2025-01-16 03:58 | Outpatient (BNV) | payer MEDICARE, MEDICAID, SELFPAY | PROVIDERS: Emergency Provider Emergency Medicine; Visit Provider Radiology Diagnostic Radiology | DX: K76.0 Fatty (change of) liver, not elsewhere classified (principal); D25.9 Leiomyoma of uterus, unspecified; K63.89 Other specified diseases of intestine | CPT/HCPCS: 74177 ==

== ENCOUNTER 2025-03-18 10:04 | Outpatient (REF) | payer MEDICARE, MEDICAID, SELFPAY ==
--- OUTSIDE RECORDS SUMMARY | 2025-03-18 09:45 | XMS_ITS | Encounter Summary ---
Author Organization [employer] Address [address] [facility] [address] [place] [address] Care Team Providers Care Psychotherapist Name Role Phone Milvia Patricia MD Primary Care Provider [phone] Reason for Referral * Consultation (Routine) - Pending Review Specialty Diagnoses / Procedures Referred By Kadi vasques Referred To Contact Gastroenterology Diagnoses Screening for colon cancer Milvia Patricia MD [address] [place] [address] Phone: tel: fax: Referral ID Status Reason Start Date Expiration Date Visits Requested Visits Authorized [id number] Pending Review Specialty Services Required 03/18/2026 1 1 * Imaging (Routine) - Authorized Specialty Diagnoses / Procedures Referred By Kadi vasques Referred To Contact Radiology Diagnoses Screening mammogram for breast cancer Procedures BI Mammogram Screening Tomosynthesis Bilateral Milvia Patricia MD [address] [place] [address] Phone: tel: fax: [facility] [address] [place] [phone] Phone: tel: fax: Referral ID Status Reason Start Date Expiration Date V isits Requested Visits Authorized [id number] Authorized 03/18/2025 03/18/2026 1 1 * Consultation (Routine) - Pending Review Specialty Diagnoses / Procedures Referred By Kadi vasques Referred To Contact Occupational Therapy Diagnoses Disabling essential tremor Milvia Patricia MD [address] [place] [address] Phone: tel: fax: Referral ID Status Reason Start Date Expiration Date Visits Requested Visits Authorized [id number] Pending Review Specialty Services Required 03/18/2026 1 1 Reason for Visit * Reason Comments new pt Encounter Details Date Type Department Care Team (Latest Contact Info) Description 03/18/2025 9:45 AM EST Office Visit [facility] [address] [place] [address] [phone] Milvia Patricia MD [address] [place] [address] [phone] Type 2 diabetes mellitus without complication, without long-term current use of insulin (HCC) (Primary Dx); Dietary counseling; Exercise counseling; Class 2 severe obesity with serious comorbidity and body mass index (BMI) of 37.0 to 37.9 in adult, unspecified obesity type; Diabetic polyneuropathy associated with type 2 diabetes mellitus (HCC); Disabling essential tremor; Screening mammogram for breast cancer; Encounter for immunization; Coronary artery disease without angina pectoris, unspecified vessel or lesion type, unspecified whether nooksack or transplanted heart; Hyperlipidemia, unspecified hyperlipidemia type; Heartburn; Hyperthyroidism; Cocaine abuse (HCC); ABDIEL (generalized anxiety disorder); Severe depression (CMS/HCC) (HCC); Screening for colon cancer; Primary hypertension; Iron deficiency anemia due to chronic blood loss Social History Tobacco Use Types Packs/Day Years Used Date Smoking Tobacco: Never Passive Smoke Exposure: Never Smokeless Tobacco: Never Alcohol Use Standard Drinks/Week Comments Not Currently 0 (1 standard drink = 0.6 oz pure alcohol) Medication Assisted Quit 09/2022 Alcohol Answer Date Recorded How often do you have a drink containing alcohol ? 1 03/18/2025 How many drinks containing a lcohol do you have on a typical day when you are drinking? 0 03/18/2025 How often do you have six or more drinks on one occasion? 0 03/18/2025 Depression Answer Date Recorded Patient Health Questionnaire-9 Score 21 03/18/2025 Patient Health Questionnaire-9 Score 21 03/18/2025 Last PHQ-9: Questionnaire Data Not on file 1 05/19/2024 Housing Stability Answer Date Recorded What is your housing situation today? I do not have housing (Staying with others, in a hotel, in a retirement, living outside on the street, on a beach, in a car, or in a park 01/05/[address] you li ve. Do you have problems with any of the following? None of the above 01/05/2023 Food Insecurity Answer Date Recorded Within the past 12 months, y ou worried that your food would run out before you got money to buy more: Sometimes True 2023 Within the past 12 months,th e food you bought just didn't last and you didn't have enough money to get more: Sometimes True 07/31/2023 Transportation Answer Date Recorded In the past 12 months, has l ack of transportation kept you from medical appts, meetings, work or from getting things needed for daily living? No 07/31/2023 Utilities Answer Date Recorded In the past 12 months, has t he electric, gas, oil or water company threatened to shut off services in your home? No 01/09/2023 Depression Answer Date Recorded Patient Health Questionnaire-2 Score 6 03/18/2025 Comments Unknown Sex and Gender Information Value Date Recorded Sex Assigned at Female 07/20/2022 11:34 AM EDT Legal Sex Female 4:15 PM EDT Gender Identity Female 07/20/2022 11:34 AM EDT Sexual Orientation Straight 07/20/2022 11 :34 AM EDT documented as of this encounter Last Filed Vital Signs Vital Sign Reading Time Taken Comments Blood Pressure - - Pulse 72 03/18/2025 9:10 AM EST Temperature 36.3 C (97.4 F) 03/18/2025 9:10 AM EST Respiratory Rate 20 03/18/2025 9:10 AM EST Oxygen Saturation 98% 03/18/2025 9:10 AM EST Inhaled Oxygen Concentration - - Weight 84.8 kg (187 lb) 03/18/2025 9:10 AM EST Height 149.9 cm (4' 11 ) 03/18/2025 9:10 AM EST Body Mass Index 37.77 03/18/2025 9:10 AM EST documented in this encounter Functional Status * Over the past 2 weeks, how often have you been bothered by any of the following problems? Question Answer Date of Assessment Author Patient Health Questionnaire -2 Score 6 03/18/2025 9:34 AM Francis Meehan MA * Little interest or pleasure in doing things Answer Date of Assessment Author Nearly every day 03/18/2025 9:34 AM Francis Meehan MA * Feeling down, depressed, or hopeless Answer Date of Assessment Author Nearly every day 03/18/2025 9:34 AM Francis Meehan MA * Trouble falling or staying asleep, or sleeping too much Answer Date of Assessment Author Nearly every day 03/18/2025 9:34 AM Francis Meehan MA * Feeling tired or having little energy Answer Date of Assessment Author Nearly every day 03/18/2025 9:34 AM Francis Meehan MA * Poor appetite or overeating Answer Date of Assessment Author Nearly every day 03/18/2025 9:34 AM Francis Meehan MA * Feeling bad about yourself - or that you are a failure or have let yourself or your family down Answer Date of Assessment Author Not at all 03/18/2025 9:34 AM Francis Meehan MA * Trouble concentrating on things, such as reading the newspaper or watching television Answer Date of Assessment Author Nearly every day 03/18/2025 9:34 AM Francis Meehan MA * Moving or speaking so slowly that other people could have noticed? Or the opposite - being so fidgety or restless that you have been moving around a lot more than usual. Answer Date of Assessment Author Nearly every day 03/18/2025 9:34 AM Franics Meehan MA * Thoughts that you would be better off or hurting yourself in some way Answer Date of Assessment Author Not at all 03/18/2025 9:34 AM Francis Meehan MA * Patient Health Questionnaire-9 Score Answer Date of Assessment Author 21 03/18/2025 9:34 AM Francis Meehan MA * Over the last 2 weeks, how often have you been bothered by any of the following problems? Question Answer Date of Assessment Author Feeling nervous, anxious, or on edge 3 03/18/2025 9:35 AM Francis Meehan MA Not being able to stop or co ntrol worrying 3 03/18/2025 9:35 AM Francis Meehan MA Worrying too much about diff erent things 3 03/18/2025 9:35 AM Francis Meehan MA Trouble relaxing 3 03/18/2025 9:35 AM Francis Boyd MA Being so restless that it is hard to sit still 3 03/18/2025 9:35 AM Francis Meehan MA Becoming easily annoyed or irritable 3 03/18/2025 9:35 AM Francis Meehan MA Feeling afraid as if somethi ng awful might happen 3 03/18/2025 9:35 AM Francis Meehan MA ABDIEL-7 Total Score 21 03/18/2025 9:35 AM Francis Meehan MA * How difficult have these problems made it for you to do your work, take care of things at home, or get along with other people? Answer Date of Assessment Author Very difficult 03/18/2025 9:34 AM Francis Meehan MA documented as of this encounter Progress Notes * Milvia Patricia MD - 03/18/2025 9:45 AM EST SUBJECTIVE: Breann Mullins is a 54 y.o. female who presents for new/transfer patient. Denies recent illness, ER visit, or hospitalization. Acute Concerns: Tremors - Reports hand tremors that interfere with daily activities, including difficulty eating and holding objects - States hands shake to the extent that she must pause to eat and cannot grasp items easily - Has been prescribed medication for tremors by a previous psychiatrist - Was referred to a neurologist and specialist for tremors, but did not complete occupational therapy - Has not used adaptive devices or heavy silverware for tremor management Substance use - Reports intermittent cocaine use, not daily but occasionally - States use is related to coping with difficult experiences Gastritis - Reports frequent heartburn symptoms - Has been prescribed Pepcid for heartburn Tendon contracture - Reports contracture of hand tendons, causing fingers to bunch up and contract - Has not received injections or surgical treatment for tendon contracture Psychiatric care - Has been under care of a psychiatrist for medication management - Transitioning psychiatric care to a new provider [facility] [place] - Reports being referred for specialist evaluation for nerves and tremors - No mention of other symptoms or concerns prior to the encounter Chronic Conditions and Plans: DM2 Metformin 1000mg XL daily Aic 6.5 Labs pending Foot- Eye On statin and ACE1 and ASA Hypertension On Lisinopril 5mg daily Health Maintenance Mammo- ordered 03/18/25 Colonoscopy-- GI Imms- due for COVID and RSV, accepts Flu Patient Active Problem List Diagnosis Date Noted Severe depression (CMS/HCC) (HCC) 03/18/2025 ABDIEL (generalized anxiety disorder) 03/18/2025 Housing insecurity 03/18/2025 Foot fracture, right 03/18/2025 Intestinal obstruction due to decreased peristalsis (HCC) 03/18/2025 Cocaine abuse (FORM[facility]LY [facility]) 03/18/2025 Class 2 severe obesity with serious comorbidity and body mass index (BMI) of 37.0 to 37.9 in adult 03/18/2025 Cocaine use 03/18/2025 Disabling essential tremor 03/18/2025 History of suicidal ideation 06/21/2024 Diabetic polyneuropathy associated with type 2 diabetes mellitus (HCC) 10/12/2023 Encounter for screening mammogram for malignant neoplasm of breast 05/11/2023 Colon cancer screening 05/11/2023 Small bowel obstruction (HCC) 02/06/2023 Tremors of nervous system 02/06/2023 Iron deficiency anemia due to chronic blood loss 02/06/2023 Metrorrhagia 02/06/2023 Right foot pain 02/06/2023 Vaginal itching 02/06/2023 Primary hypertension 11/16/2022 Alcohol use disorder 11/16/2022 Heartburn 11/16/2022 Urinary frequency 11/16/2022 Major depressive disorder, recurrent episode with anxious distress (CMS/HCC) 11/16/2022 Hypertensive heart disease 07/20/2022 Hyperlipidemia 07/20/2022 Restless leg syndrome 07/20/2022 PTSD (post-traumatic stress disorder) 03/17/2022 Injury of finger of right hand 03/09/2022 Coronary artery disease 01/31/2022 Controlled type 2 diabetes mellitus without complication, without long-term current use of insulin ([facility]) 09/23/2021 Hyperthyroidism 09/23/2021 Type 2 diabetes mellitus without complication, without long-term current use of insulin ([facility]) 09/23/2021 Closed nondisplaced fracture of phalanx of right ring finger 10/16/2020 Surgical History[1] Social History Social History Narrative Not on file Review of Systems Constitutional: Negative. Respiratory: Negative. Cardiovascular: Negative. Musculoskeletal: Positive for arthralgias and myalgias. Neurological: Positive for tremors. Hematological: Negative. Psychiatric/Behavioral: Positive for sleep disturbance. The patient is nervous/anxious. OBJECTIVE: Vitals: 03/18/25 0910 Pulse: 72 Resp: 20 Temp: 97.4 ??F (36.3 ??C) TempSrc: Oral SpO2: 98% Weight: 187 lb (84.8 kg) Height: 4' 11 (1.499 m) Physical Exam Vitals and nursing note reviewed. Constitutional: Appearance: Normal appearance. HENT: Head: Normocephalic and atraumatic. Cardiovascular: Rate and Rhythm: Normal rate and regular rhythm. Pulses: Normal pulses. Heart sounds: Normal heart sounds. Pulmonary: Effort: Pulmonary effort is normal. Breath sounds: Normal breath sounds. Skin: General: Skin is warm and dry. Neurological: General: No focal deficit present. Mental Status: She is alert and oriented to person, place, and time. Psychiatric: Mood and Affect: Mood normal. Behavior: Behavior normal. ASSESSMENT/PLAN Type 2 diabetes mellitus without complication, without long-term current use of insulin (HCC): - Type 2 diabetes mellitus managed with current medications. - Ordered laboratory tests for diabetes monitoring. Class 2 severe obesity with serious comorbidity and body mass index (BMI) of 37.0 to 37.9 in adult,unspecified obesity type: - Obesity with BMI 37.0-37.9 and associated comorbidities. Diabetic polyneuropathy associated with type 2 diabetes mellitus (HCC): - Diabetic polyneuropathy present. Cocaine use: - Cocaine use reported, not daily but occasional, used to cope with difficult experiences. - Offered referral to client specialist for evaluation and possible pharmacologic therapy to reduce cocaine cravings. Patient informed about available support and asked to notify if interested. Disabling essential tremor: - Essential tremor causing significant functional impairment, including difficulty eating and holding objects. - Continued current medication for tremor. Discussed occupational therapy referral for hand function training and adaptive devices. Advised to avoid alcohol as it worsens tremors. Screening mammogram for breast cancer: - Due for screening mammogram. - Ordered screening mammogram. Tendon contracture: - Tendon contracture of the hand present. - Discussed referral to hand surgeon for possible tendon injections at [facility]. Patient declined referral. Heartburn/gastritis: - Heartburn/gastritis symptoms present. - Referral to gastroenterology for evaluation and management, including colonoscopy. Influenza vaccination: - Administered influenza vaccine during visit. Problem List Items Addressed This Visit Coronary artery disease Overview Admitted 12/[facility] to [facility] in [place] with acute MN. Underwent catheterization. Records requested. Relevant Medications aspirin (Aspirin Low Dose) 81 MG chewable tablet atorvastatin (Lipitor) 80 MG tablet lisinopril 5 MG tablet prazosin (Minipress) 5 MG capsule propranolol (Inderal) 20 MG tablet Hyperlipidemia Relevant Medications aspirin (Aspirin Low Dose) 81 MG chewable tablet atorvastatin (Lipitor) 80 MG tablet metFORMIN XR (Glucophage-XR) 500 MG 24 hr tablet Hyperthyroidism Relevant Medications aspirin (Aspirin Low Dose) 81 MG chewable tablet atorvastatin (Lipitor) 80 MG tablet methIMAzole (Tapazole) 5 MG tablet propranolol (Inderal) 20 MG tablet Other Relevant Orders TSH W/Reflex to FT4 Primary hypertension Relevant Medications lisinopril 5 MG tablet prazosin (Minipress) 5 MG capsule propranolol (Inderal) 20 MG tablet Heartburn Relevant Medications famotidine (Pepcid) 20 MG tablet ferrous sulfate 325 (65 Fe) MG tablet propranolol (Inderal) 20 MG tablet Iron deficiency anemia due to chronic blood loss Relevant Medications aspirin (Aspirin Low Dose) 81 MG chewable tablet ferrous sulfate 325 (65 Fe) MG tablet Diabetic polyneuropathy associated with type 2 diabetes mellitus (HCC) Relevant Medications OLANZapine (ZyPREXA) 5 MG tablet escitalopram (Lexapro) 10 MG tablet busPIRone (Buspar) 15 MG tablet gabapentin (Neurontin) 300 MG capsule Type 2 diabetes mellitus without complication, without long-term current use of insulin (HCC) - Primary Relevant Medications Alcohol Swabs (Alcohol Prep) 70 % pads atorvastatin (Lipitor) 80 MG tablet glucose blood (FREESTYLE LITE) test strip lisinopril 5 MG tablet metFORMIN XR (Glucophage-XR) 500 MG 24 hr tablet TRUEplus Lancets 33G [facility] Other Relevant Orders POCT Glucose (Completed) POCT Hgb A1c (Completed) Comprehensive Metabolic Panel Lipid Panel, Standard Albumin, Random Urine W/Creatinine Severe depression (CMS/HCC) (HCC) Relevant Medications OLANZapine (ZyPREXA) 5 MG tablet escitalopram (Lexapro) 10 MG tablet busPIRone (Buspar) 15 MG tablet prazosin (Minipress) 5 MG capsule ABDIEL (generalized anxiety disorder) Relevant Medications OLANZapine (ZyPREXA) 5 MG tablet escitalopram (Lexapro) 10 MG tablet busPIRone (Buspar) 15 MG tablet Cocaine abuse (HCC) Relevant Medications OLANZapine (ZyPREXA) 5 MG tablet escitalopram (Lexapro) 10 MG tablet busPIRone (Buspar) 15 MG tablet Class 2 severe obesity with serious comorbidity and body mass index (BMI) of 37.0 to 37.9 in adult Relevant Medications atorvastatin (Lipitor) 80 MG tablet metFORMIN XR (Glucophage-XR) 500 MG 24 hr tablet methIMAzole (Tapazole) 5 MG tablet Disabling essential tremor Relevant Medications OLANZapine (ZyPREXA) 5 MG tablet escitalopram (Lexapro) 10 MG tablet busPIRone (Buspar) 15 MG tablet gabapentin (Neurontin) 300 MG capsule propranolol (Inderal) 20 MG tablet Other Relevant Orders Referral to Occupational Therapy Other Visit Diagnoses Dietary counseling Relevant Medications atorvastatin (Lipitor) 80 MG tablet metFORMIN XR (Glucophage-XR) 500 MG 24 hr tablet methIMAzole (Tapazole) 5 MG tablet Exercise counseling Relevant Medications atorvastatin (Lipitor) 80 MG tablet metFORMIN XR (Glucophage-XR) 500 MG 24 hr tablet methIMAzole (Tapazole) 5 MG tablet Screening mammogram for breast cancer Relevant Medications aspirin (Aspirin Low Dose) 81 MG chewable tablet Other Relevant Orders BI Mammogram Screening Tomosynthesis Bilateral Encounter for immunization Relevant Medications aspirin (Aspirin Low Dose) 81 MG chewable tablet Other Relevant Orders FLU VACCINE TRIVALENT [id number] (Fluarix) 19 yrs + (Completed) Screening for colon cancer Relevant Medications ferrous sulfate 325 (65 Fe) MG tablet Other Relevant Orders Referral to Gastroenterology Follow Up: 4 months or sooner prn Allergies[2] Current Medications[3] Congolese Translation: Provided by [facility] staff member JAKUB Blanco This note was drafted using Ambient (AI) technology. The patient/patient's guardian has been informed and has consented to the use of this technology: Yes [1] History reviewed. No pertinent surgical history. [2] Allergies Allergen Reactions Ciprofloxacin Hives [3] Current Outpatient Medications: Alcohol Swabs (Alcohol Prep) 70 % pads, TEST BLOOD SUGAR TWICE DAILY TEMPRANO EN LA MANANA Y DESPUES DE LA COMIDA EN LA TARDE, Disp: 100 each, Rfl: 3 aspirin (Aspirin Low Dose) 81 MG chewable tablet, Chew 1 tablet (81 mg) Once per day., Disp: 90 tablet, Rfl: 3 atorvastatin (Lipitor) 80 MG tablet, TAKE 1 TABLET BY MOUTH EVERY MORNING, Disp: 90 tablet, Rfl: 3 Blood Pressure Monitoring (Blood Pressure Cuff) misc, 1 each Once daily., Disp: 1 each, Rfl: 0 busPIRone (Buspar) 15 MG tablet, Take 1 tablet (15 mg) by mouth 3 times daily., Disp: 270 tablet, Rfl: 3 escitalopram (Lexapro) 10 MG tablet, Take 1 tablet (10 mg) by mouth 1 (one) time each day at the same time., Disp: 90 tablet, Rfl: 1 famotidine (Pepcid) 20 MG tablet, Take 1 tablet (20 mg) by mouth Once per day., Disp: 90 tablet, Rfl: 3 ferrous sulfate 325 (65 Fe) MG tablet, Take 1 tablet (325 mg) by mouth with breakfast., Disp: 90 tablet, Rfl: 3 gabapentin (Neurontin) 300 MG capsule, Take 1 capsule (300 mg) by mouth at bedtime., Disp: 90 capsule, Rfl: 3 glucose blood (FREESTYLE LITE) test strip, TEST BLOOD SUGAR TWICE DAILY TEMPRANO EN LA MANANA Y DESPUES DE LA COMIDA EN LA TARDE, Disp: 100 strip, Rfl: 11 lisinopril 5 MG tablet, Take 1 tablet (5 mg) by mouth Once per day., Disp: 90 tablet, Rfl: 3 metFORMIN XR (Glucophage-XR) 500 MG 24 hr tablet, Take 2 tablets (1,000 mg) by mouth in the morning. Do not crush, chew, or split., Disp: 180 tablet, Rfl: 3 methIMAzole (Tapazole) 5 MG tablet, Take 1 tablet (5 mg) by mouth 1 (one) time each day at the sametime., Disp: 90 tablet, Rfl: 2 OLANZapine (ZyPREXA) 5 MG tablet, Take 1 tablet (5 mg) by mouth Once per day., Disp: 90 tablet, Rfl: 1 prazosin (Minipress) 5 MG capsule, Take 1 capsule (5 mg) by mouth at bedtime., Disp: 90 capsule, Rfl: 0 propranolol (Inderal) 20 MG tablet, Take 1 tablet (20 mg) by mouth 2 times daily., Disp: 180 tablet, Rfl: 3 TRUEplus Lancets 33G misc, TEST BLOOD SUGAR TWICE DAILY TEMPRANO EN LA MANANA Y DESPUES DE LA COMIDA EN LA TARDE, Disp: 100 each, Rfl: 3 documented in this encounter Plan of Treatment Scheduled Orders Name Type Priority Associated Diagnoses Orde r Schedule Comprehensive Metabolic Panel Lab Routine Type 2 diabetes mellitus without complication, without long-term current use of insulin (HCC) Expected: 03/18/2025 (Approximate), Expires: 03/18/2026 Lipid Panel, Standard Lab Routine Type 2 diabetes mellitus without complication, without long-term current use of insulin (HCC) Expected: 03/18/2025 (Approximate), Expires: 03/18/2026 Albumin, Random Urine W/Creatinine Lab Routine Type 2 diabetes mellitus without complication, without long-term current use of insulin (HCC) Expected: 03/18/2025 (Approximate), Expires: 03/18/2026 BI Mammogram Screening Tomosynthesis Bilateral Imaging Routine Screening mammogram for breast cancer Expected: 03/18/2025, Expires: 05/19/2026 TSH W/Reflex to FT4 Lab Routine Hyperthyroidism Expected: 03/18/2025 (Approximate), Expires: 03/18/2026 Scheduled Referrals Name Type Priority Associated Diagnoses Order Schedule Referral to Occupational Therapy Outpatient Referral Routine Disabling essential tremor Expected: 03/18/2025 (Approximate), Expires: 03/18/2026 Referral to Gastroenterology Outpatient Referral Routine Screening for colon cancer Expected: 03/18/2025 (Approximate), Expires: 03/18/2026 documented as of this encounter Goals Goal Patient Goal Type Associated Problems Recent Progress Patient-Stated? Author Blood Pressure < 140/90 Blood Pressure 144/71(2024 2:20 PM EDT) No Anmol Cruz PharmD Hemoglobin A1c < 7 Result Component 6.5( 9:14 AM EST) No Anmol Cruz, Ryder Help patients manage their type 2 diabetes Care Plan Help patients manage their type 2 diabetes No Milvia Patricia MD Weekly blood pressure task Care Plan Weekly blood pressure task No Milvia Patricia MD Help patients manage their type 2 diabetes Care Plan Help patients manage their type 2 diabetes No Milvia Patricia MD Patient has chronic kidney disease Care Plan Patient has chronic kidney disease No Milvia Patricia MD Help patients manage their type 2 diabetes Care Plan Help patients manage their type 2 diabetes No Milvia Patricia MD Patient has diabetic neuropathy Care Plan Patient has diabetic neuropathy No Milvia Patricia MD Weekly blood pressure task Care Plan Weekly blood pressure task No Milvia Patricia MD Weekly blood pressure task Care Plan Weekly blood pressure task No Milvia Patricia MD Patient has chronic kidney disease Care Plan Patient has chronic kidney disease No Milvia Patricia MD Patient has chronic kidney disease Care Plan Patient has chronic kidney disease No Milvia Patricia MD Patient has diabetic neuropathy Care Plan Patient has diabetic neuropathy No Milvia Patricia MD Patient has diabetic neuropathy Care Plan Patient has diabetic neuropathy No Milvia Patricia MD Weekly blood pressure task Care Plan Weekly blood pressure task No Sultana Cabrera MA Weekly blood pressure task Care Plan Weekly blood pressure task No Sultana Cabrera MA Weekly blood pressure task Care Plan Weekly blood pressure task No Sultana Cabrera MA Patient has chronic kidney disease Care Plan Patient has chronic kidney disease No Sultana Cabrera MA Patient has chronic kidney disease Care Plan Patient has chronic kidney disease No Sultana Cabrera MA Patient has chronic kidney disease Care Plan Patient has chronic kidney disease No Sultana Cabrera MA Patient has diabetic neuropathy Care Plan Patient has diabetic neuropathy No Sultana Cabrera MA Patient has diabetic neuropathy Care Plan Patient has diabetic neuropathy No Sultana Cabrera MA Patient has diabetic neuropathy Care Plan Patient has diabetic neuropathy No Sultana Cabrera MA Weekly blood pressure task Care Plan Weekly blood pressure task No Musa Hernandez [facility] Weekly blood pressure task Care Plan Weekly blood pressure task No Musa Hernandez LMHC Weekly blood pressure task Care Plan Weekly blood pressure task No Musa Hernandez LMHC Patient has chronic kidney disease Care Plan Patient has chronic kidney disease No Musa Hernandez LMHC Patient has chronic kidney disease Care Plan Patient has chronic kidney disease No Musa Hernandez LMHC Patient has chronic kidney disease Care Plan Patient has chronic kidney disease No Musa Hernandez LMHC Patient has diabetic neuropathy Care Plan Patient has diabetic neuropathy No Musa Hernandez LMHC Patient has diabetic neuropathy Care Plan Patient has diabetic neuropathy No Musa Henrandez LMHC Patient has diabetic neuropathy Care Plan Patient has diabetic neuropathy No Musa Hernandez LMHC documented as of this encounter Procedures Procedure Name Priority Date/Time Associated Diagnosis Comments POCT GLYCATED HEMOGLOBIN, TOTAL Routine 03/18/2025 9:14 AM EST Type 2 diabetes mellitus without complication, without long-term current use of insulin (HCC) POCT GLUCOSE ([id number]) Routine 03/18/2025 9:13 AM EST Type 2 diabetes mellitus without complication, without long-term current use of insulin (HCC) documented in this encounter Results * (ABNORMAL) POCT Hgb A1c (03/18/2025 9:14 AM EST) Hemoglobin A1C 6.5(A) 4.0 - 5.7 % QC Media Lot # [id number] Lot# Expiration Date 52,327 Blood 03/18/2025 9:14 AM EST Milvia Patricia MD POINT OF CARE TEST ENTER/EDIT ORDERABLES Final Result * POCT Glucose (03/18/2025 9:13 AM EST) Glucose Blood, POC 165 60 - 200 mg/dL QC Media Lot # [id number] Lot# Expiration Date 31,126 Blood Capillary blood specimen / Unknown 03/18/2025 9:13 AM EST Milvia Patricia MD POINT OF CARE TEST ENTER/EDIT ORDERABLES Final Result documented in this encounter Visit Diagnoses Diagnosis Type 2 diabetes mellitus without complication, without long-term current use of insulin (HCC)- Primary Dietary counseling Dietary surveillance and counseling Exercise counseling Class 2 severe obesity with serious comorbidity and body mass index (BMI) of 37.0 to 37.9 in adult, unspecified obesity type Diabetic polyneuropathy associated with type 2 diabetes mellitus (HCC) Disabling essential tremor Screening mammogram for breast cancer Encounter for immunization Coronary artery disease without angina pectoris, unspecified vessel or lesion type, unspecified whether [place] or transplanted heart Hyperlipidemia, unspecified hyperlipidemia type Heartburn Hyperthyroidism Thyrotoxicosis without mention of goiter or other cause, without mention of thyrotoxic crisis or storm Cocaine abuse (HCC) Nondependent cocaine abuse, unspecified ABDIEL (generalized anxiety disorder) Generalized anxiety disorder Severe depression (CMS/HCC) (HCC) Depressive disorder, not elsewhere classified Screening for colon cancer Special screening for malignant neoplasms, colon Primary hypertension Unspecified essential hypertension Iron deficiency anemia due to chronic blood loss Iron deficiency anemia secondary to blood loss (chronic) documented in this encounter Additional Health Concerns Active Problems Noted Date Diagnosed Date Help patients manage their type 2 diabetes 03/17 Weekly blood pressure task 03/17/2025 Help patients manage their type 2 diabetes 03/17 Patient has chronic kidney disease 03/17/2025 Help patients manage their type 2 diabetes 03/17 Patient has diabetic neuropathy 03/17/2025 Weekly blood pressure task 03/17/2025 Weekly blood pressure task 03/17/2025 Patient has chronic kidney disease 03/17/2025 Patient has chronic kidney disease 03/17/2025 Patient has diabetic neuropathy 03/17/2025 Patient has diabetic neuropathy 03/17/2025 Weekly blood pressure task 03/17/2025 Weekly blood pressure task 03/17/2025 Weekly blood pressure task 03/17/2025 Patient has chronic kidney disease 03/17/2025 Patient has chronic kidney disease 03/17/2025 Patient has chronic kidney disease 03/17/2025 Patient has diabetic neuropathy 03/17/2025 Patient has diabetic neuropathy 03/17/2025 Patient has diabetic neuropathy 03/17/2025 Weekly blood pressure task 03/18/2025 Weekly blood pressure task 03/18/2025 Weekly blood pressure task 03/18/2025 Patient has chronic kidney disease 03/18/2025 Patient has chronic kidney disease 03/18/2025 Patient has chronic kidney disease 03/18/2025 Patient has diabetic neuropathy 03/18/2025 Patient has diabetic neuropathy 03/18/2025 Patient has diabetic neuropathy 03/18/2025 Assessment Noted Time PHQ-9 Depression Total Score: 21 025 9:34 AM EST documented as of this encounter Care Teams Psychotherapist Relationship Specialty Start Date End Date Milvia Patricia MD [address] [place] [address] PCP - General Family Medicine 03/18/25 JULIUS MARES [address] [place], [place] Primary Care Provider Family Medicine 09/24/22 Betty Wyatt Purchasing And Claims SupervisorBrush Hand 07/06/23 documented as of this encounter
--- OUTSIDE RECORDS SUMMARY | 2025-03-18 11:04 | XMS_ITS | Encounter Summary ---
Author Organization [employer] Address [address] [facility] 7t [place] [address] Care Team Providers Care Fleet Manager/Dispatch Name Role Phone Mayra Euceda MD Primary Care Provide r Milvia Patricia MD Primary Care Provider [phone] Reason for Visit * Reason Comments Med Refill Encounter Details Date Type Department Care Team ([facility] st Contact Info) Description 11/25/2023 Refill [facility] [address] [place] [address] Mayra Euceda MD [address] [place], [place] [phone] Diabetic polyneuropathy associated with type 2 diabetes mellitus (CMS/HCC) Social History Tobacco Use Types Packs/Day Years Used Date Smoking Tobacco: Never Passive Smoke Exposure: Never Smokeless Tobacco: Never Alcohol Use Standard Drinks/Week Comments Not Currently 0 (1 standard drink = 0.6 oz pure alcohol) Medication Assisted Quit 09/2022 Depression Answer Date Recorded Patient Health Questionnaire-9 Score 19 11/16/2022 Housing Stability Answer Date Recorded What is your housing situation today? I do not have housing (Staying with others, in a hotel, in a group home, living outside on the street, on a [...] Answer Date Recorded Patient Health Questionnaire-2 Score 4 11/16/2022 Comments Unknown Sex and Gender Information Value Date Recorded Sex Assigned at Female 07/20/2022 11:34 AM EDT Legal Sex Female 4:15 PM EDT Gender Identity Female 07/20/2022 11:34 AM EDT Sexual Orientation Straight 07/20/2022 11 :34 AM EDT documented as of this encounter Plan of Treatment Not on file documented as of this encounter Goals Goal Patient Goal Type Associated Problems Recent Progress Patient-Stated? Author Blood Pressure < 140/90 Blood Pressure 144/71(2024 2:20 PM EDT) No Anmol Cruz, Ryder Hemoglobin A1c < 7 Result Component 6.5( 9:14 AM EST) No Anmol Cruz PharmD documented as of this encounter Visit Diagnoses Diagnosis Diabetic polyneuropathy associated with type 2 diabetes mellitus (HCC) documented in this encounter Additional Health Concerns Assessment Noted Time PHQ-9 Depression Total Score: 19 023 3:43 PM EDT documented as of this encounter Care Teams Fleet Manager/Dispatch Relationship Specialty Start Date End Date Mayra Euceda MD [address] [place] [address] PCP - General Internal Medicine 11/16/22 10/31/24 Milvia Patricia MD [address] [place] [address] PCP - General Family Medicine 03/18/25 JULIUS MARES [address] [place], [place] Primary Care Provider Family Medicine 09/24/22 Betty Wyatt Back HangerLicensed Home Inspector 07/06/23 documented as of this encounter
--- OUTSIDE RECORDS SUMMARY | 2025-03-18 11:04 | XMS_ITS | Encounter Summary ---
Author Organization [employer] Address [address] [facility] [facility] [address] [place] [address] Care Team Providers Care Rental Management Trainee Name Role Phone Mayra Euceda MD Primary Care Provide r Milvia Patricia MD Primary Care Provider [phone] Encounter Details Date Type Department Care Team (Late st Contact Info) Description 02/21/2023 Abstract [facility] MED[facility]INE [address] [place], [place] [phone] Adali Singer Social History Tobacco Use Types Packs/Day Years [...] with others, in a hotel, in a fdc, living outside on the street, on a beach, in a car, or in a park 01/05/[address] you li ve. Do you have problems with any of the following? None of the above 01/05/2023 Food Insecurity Answer Date Recorded Within the past 12 months, y ou worried that your food would run out before you got money to buy more: Never True 01/09/2023 Within the past 12 months,th e food you bought just didn't last and you didn't have enough money to get more: Never True Transportation Answer Date Recorded In the past 12 months, has l ack of transportation kept you from medical appts, meetings, work or from getting things needed for daily living? Yes, it has kept me from medical appointments or getting medications. 01/05/2023 Utilities Answer Date Recorded In the past [...] Diagnoses Not on filedocumented in this encounter Additional Health Concerns Assessment Noted Time PHQ-9 Depression Total Score: 19 023 3:43 PM EDT documented as of this encounter Care Teams Rental Management Trainee Relationship Specialty Start Date End Date Mayra Euceda MD [address] [place] [address] PCP - General Internal Medicine 11/16/22 10/31/24 Milvia Patricia MD [address] [place] [address] PCP - General Family Medicine 03/18/25 JULIUS MARES [address] [place], [place] Primary Care Provider Family Medicine 09/24/22 Betty Wyatt Division Order AnalystMerchandiser Seasonal 07/06/23 documented as of this encounter
--- OUTSIDE RECORDS SUMMARY | 2025-03-18 11:04 | XMS_ITS | Encounter Summary ---
Author Organization [facility] Address [address] [place] [address] Care Team Providers Care Sales Service Rep Name Role Phone Jj Scott Primary Care Provider Reason for Visit * Reason Comments Medication Refill Encounter Details Date Type Department Care Team (Late st Contact Info) Description 09/30/2024 Refill [facility] [address] [facility] [address] [place] [address] Viviane Childress MD [address] [place] [address] Medication Refill Social History Tobacco Use Types Packs/Day Years Used Date Smoking Tobacco: Never Smokeless Tobacco: Never Alcohol Use Standard Drinks/Week Comments Yes 49 (1 standard drink = 0.6 oz pure alcohol) 4 cans of beer and 3 shots of tequila daily for the last month PHQ-2 Answer Date Recorded PHQ-2 Total Score 2 07/08/2024 Comments Unknown Sex and Gender Information Value Date Recorded Sex Assigned at Not on file Legal Sex Female 3:00 PM EST Gender Identity Not on file Sexual Orientation Not on file documented as of this encounter Plan of Treatment Not on file documented as of this encounter Visit Diagnoses Not on filedocumented in this encounter Additional Health Concerns Assessment Noted Time PHQ-9 Depression Total Score: 12 025 1:18 PM EDT documented as of this encounter Care Teams Sales Service Rep Relationship Specialty Start Date End Date Jj Scott [address] [place] [address] PCP - General 11/05/24 documented as of this encounter
--- OUTSIDE RECORDS SUMMARY | 2025-03-18 11:04 | XMS_ITS | Encounter Summary ---
Author Organization [facility] Address [address] [phone] Phone -[id number] Care Team Providers Care Estate Tax Examiner Name Role Phone Jj Scott Primary Care Provider Reason for Visit * Reason Comments Medication Refill Encounter Details Date Type Department Care Team ([facility] Contact Info) Description 09/05/2024 [place] [address] Viviane Richey MD [address] [place] [phone] Medication Refill Social History Tobacco Use Types [...] as of this encounter Visit Diagnoses Diagnosis Anxiety Anxiety state, unspecified Recurrent major depressive disorder, in full remission (HC Code) documented in this encounter Additional Health Concerns Assessment Noted Time PHQ-9 Depression Total Score: 12 025 1:18 PM EDT documented as of this encounter Care Teams Estate Tax Examiner Relationship Specialty Start Date End Date [facility] [address] [place] [address] PCP - General 11/05/24 documented as of this encounter
--- OUTSIDE RECORDS SUMMARY | 2025-03-18 11:04 | XMS_ITS | Encounter Summary ---
Author Organization [facility] Address [address] [place] [address] Phone -[id number] Care Team Providers Care Refining Engineer Name Role Phone Jj Scott Primary Care Provider Encounter Details Date Type Department Care Team (Latest Contact Info) Description 02/14/2025 Results Follow-Up [address] [address] Maeve Sharif, POINT OF CARE TECHNICIAN [address] [place] [phone] CBC and differential, Comprehensive metabolic panel, Urinalysis with culture reflex, Additional followed-up results: 3 Social History Tobacco Use Types Packs/Day Years Used Date Smoking Tobacco: Never Smokeless Tobacco: Never Alcohol Use Standard Drinks/Week Comments Yes 49 (1 standard drink = 0.6 oz pure alcohol) 4 cans of beer and 3 shots of tequila daily for the last month PHQ-2 Answer Date Recorded PHQ-2 Total Score 2 07/08/2024 Interpersonal Safety Answer Date Record ed Is there anyone in your life that is hurting or threatening you in anyway? no 11/05/2024 Physical Indicators of Abuse No evidence of phys ical abuse 11/05/2024 Comments Unknown Sex and Gender Information Value [...] documented as of this encounter Care Teams Refining Engineer Relationship Specialty Start Date End Date [facility] [address] [place] [address] PCP - General 11/05/24 documented as of this encounter
--- OUTSIDE RECORDS SUMMARY | 2025-03-18 11:05 | XMS_ITS | Encounter Summary ---
Author Organization [employer] Address [address] [facility] 7t [place] [address] Care Team Providers Care Abrading Machine Tender Name Role Phone Mayra Euceda MD Primary Care Provide r Milvia Patricia MD Primary Care Provider [phone] Encounter Details Date Type Department Care Team (Late st Contact Info) Description 01/16/2023 Orders Only [facility] MEDICINE [address] [place], [place] [phone] Anmol Cruz, PharmD [address] [place] [address] Social History Tobacco Use Types Packs/Day Years [...] 144/71(2024 2:20 PM EDT) No Anmol Cruz, PharmD Hemoglobin A1c < 7 Result Component 6.5( 9:14 AM EST) No Anmol Cruz PharmD documented as of this encounter Visit Diagnoses Not on filedocumented in this encounter Additional Health Concerns Assessment Noted Time PHQ-9 Depression Total Score: 19 023 3:43 PM EDT documented as of this encounter Care Teams Abrading Machine Tender Relationship Specialty Start Date End Date Mayra Euceda MD [address] [place] [address] PCP - General Internal Medicine 11/16/22 10/31/24 Milvia Patricia MD [address] [place] [address] PCP - General Family Medicine 03/18/25 JULIUS MARES [address] [place], [place] Primary Care Provider Family Medicine 09/24/22 Betty Wyatt Brazer InductionRussian Language Professor 07/06/23 documented as of this encounter
--- OUTSIDE RECORDS SUMMARY | 2025-03-18 11:05 | XMS_ITS | Encounter Summary ---
Author Organization [employer] [facility] Address [address] [facility] 7t [place] [address] Care Team Providers Care Parts Expediter Name Role Phone Venus Vasquez Primary Care Provider Mayra Briggs MD Primary Care Provide r Milvia Patricia MD Primary Care Provider [phone] Reason for Visit * Reason Comments Med Change Request Encounter Details Date Type Department Care Team (Late st Contact Info) Description 07/20/2022 Refill [facility] [address] [place] [address] Moses Beard FNP Restless leg syndrome; Depression, unspecified depression type Social History Tobacco Use Types Packs/Day Years Used Date Smoking Tobacco: Never Passive Smoke Exposure: Never Smokeless Tobacco: Never Comments Unknown Sex and Gender Information Value Date Recorded Sex Assigned at Female 07/20/2022 11:34 AM EDT Legal Sex Female 4:15 PM EDT Gender Identity Female 07/20/2022 11:34 AM EDT Sexual Orientation Straight 07/20/2022 11 :34 AM EDT COVID-19 Exposure Response Date Recorded In the last 10 days, have yo u been in contact with someone who was confirmed or suspected to have Coronavirus/COVID-19? No / Unsure 07/20/2022 11:31 AM EDT documented as of this encounter Plan of Treatment Not on file documented as of this encounter Visit Diagnoses Diagnosis Restless leg syndrome Restless legs syndrome (RLS) Depression, unspecified depression type documented in this encounter Care Teams Parts Expediter Relationship Specialty Start Date End Date Venus Vasquez FNP PCP - General Family Medicine 11/02/22 11/15/22 Mayra Euceda MD [address] [place] [address] PCP - General Internal Medicine 11/16/22 10/31/24 Milvia Patricia MD [address] [place] [address] PCP - General Family Medicine 03/18/25 VENSU VASQUEZ [address] [place], [place] Primary Care Provider Family Medicine 09/24/22 Betty Wyatt Retail Client Solutions AnalystWash Oil Pump Operator Helper 07/06/23 documented as of this encounter
--- OUTSIDE RECORDS SUMMARY | 2025-03-18 11:05 | XMS_ITS | Encounter Summary ---
Author Organization [employer] [facility] Address [address] [facility] [address] 7[address] [place] [address] Care Team Providers Care Lead Sewage Plant Operator Name Role Phone Venus Vasquez Primary Care Provider Mayra Briggs MD Primary Care Provide r Milvia Patricia MD Primary Care Provider [phone] Reason for Visit * Reason Comments Med Refill Encounter Details Date Type Department Care Team (Late st Contact Info) Description 09/20/2022 Refill [facility] [address] [place], [place] [phone] Moses Beard FNP Hyperthyroidism Social History Tobacco Use Types Packs/Day [...] suspected to have Coronavirus/COVID-19? No / Unsure 09/09/2022 9:03 AM EDT documented as of this encounter Plan of Treatment Not on file documented as of this encounter Visit Diagnoses Diagnosis Hyperthyroidism Thyrotoxicosis without mention of goiter or other cause, without mention of thyrotoxic crisis or storm documented in this encounter Care Teams Lead Sewage Plant Operator Relationship Specialty Start Date End Date Venus Vasquez FNP PCP - General Family Medicine 11/02/22 11/15/22 Mayra Euceda MD [address] [place] [address] PCP - General Internal Medicine 11/16/22 10/31/24 Milvia Patricia MD [address] [place] [address] PCP - General Family Medicine 03/18/25 VENUS VASQUEZ [address] [place], [place] Primary Care Provider Family Medicine 09/24/22 Betty Wyatt Chief Enterprise ArchitectPre Press Manager 07/06/23 documented as of this encounter
--- OUTSIDE RECORDS SUMMARY | 2025-03-18 11:05 | XMS_ITS | Clinical Summary ---
Author Organization [address] Address [address] [place] [address] Phone Care Team Providers Care Retail Marketing Executive Name Role Phone Jj Scott Primary Care Provider Allergies Active Allergy Reactions Criticality Noted Date Comments Ciprofloxacin Rash Low 06/21/2024 Medications atorvastatin (LIPITOR) 80 mg tabletIndications:H yperlipidemia, unspecified hyperlipidemia type Take 1 tablet (80 mg total) by mouth daily. 90 tablet 3 5 Active famotidine (PEPCID) 20 mg tablet Take 1 tablet (20 mg total) by mouth daily as needed for heartburn. 90 tablet 1 5 Active lisinopriL (PRINIVIL,ZESTRIL) 5 mg tabletIndications:H ypertension, unspecified type Take 1 tablet (5 mg total) by mouth daily. 90 tablet 3 06/27/2024 1:53 PM EDT 5 Active metFORMIN XR (GLUCOPHAGE-XR) 500 mg 24 hr tabletIndications:T ype 2 diabetes mellitus without complication, without long-term current use of insulin (HC CODE) Take 2 tablets (1,000 mg total) by mouth daily. 180 tablet 3 5 Active methIMAzole (TAPAZOLE) 5 mg tabletIndications:H yperthyroidism Take 1 tablet (5 mg total) by mouth daily. 90 tablet 3 5 Active polyethylene glycol (MIRALAX) 17 gram packetIndications:I katherine deficiency anemia, unspecified iron deficiency anemia type Take 1 packet (17 g total) by mouth daily. Mix in 8 ounces of water, juice, soda, coffee or tea prior to taking. 14 each 2 06/27/2024 1:53 PM EDT 5 Active ferrous sulfate (FEOSOL) 325 mg (65 mg iron) tabletIndications:I katherine deficiency anemia, unspecified iron deficiency anemia type Take 1 tablet (325 mg total) by mouth 3 (three) times daily with meals. 90 tablet 3 5 Active aspirin 81 mg chewable tabletIndications:H yperlipidemia, unspecified hyperlipidemia type Take 1 tablet (81 mg total) by mouth daily. 90 tablet 5 Active escitalopram oxalate (LEXAPRO) 10 mg tabletIndications:A nxiety,Recurrent major depressive disorder, in full remission (HC Code) Take 1 tablet (10 mg total) by mouth daily. 30 tablet 2 5 Active busPIRone (BUSPAR) 15 mg tabletIndications:A nxiety Take 1 tablet (15 mg total) by mouth 3 times a day. 90 tablet 2 5 Active gabapentin (NEURONTIN) 300 mg capsuleIndications: Alcohol use disorder,Tremor of both hands Take 1 capsule (300 mg total) by mouth daily. 90 capsule 1 5 Active prazosin (MINIPRESS) 5 mg capsuleIndications: Anxiety,Recurrent major depressive disorder, in full remission (HC Code) TAKE 1 CAPSULE(5 MG) BY MOUTH AT BEDTIME 90 capsule 3 5 Active propranoloL (INDERAL) 20 mg Immediate Release tablet Take 1 tablet (20 mg total) by mouth 2 (two) times daily. TAKE AT 10 AM AND 5 PM 180 tablet 1 5 Active OLANZapine (ZYPREXA) 5 mg tabletIndications:A nxiety,Recurrent major depressive disorder, in full remission (HC Code) TAKE 1 TABLET(5 MG) BY MOUTH AT BEDTIME 30 tablet 2 5 Active Active Problems Problem Noted Date Diagnosed Date Iron deficiency anemia, unsp ecified iron deficiency anemia type 07/11/2024 Alcohol use, unspecified wit h other alcohol-induced disorder (HC Code) 07/08/2024 Type 2 diabetes mellitus wit hout complication, without long-term current use of insulin 06/21/2024 HTN (hypertension) 06/21/2024 Mixed hyperlipidemia 06/21/2024 Tremor of both hands 06/21/2024 Depression, unspecified depression type 06/22/19 25 History of suicidal ideation 06/21/2024 Overview (06/21/2024): Reports was hospitalized 2023 for 5 days with SI, she denies attempt or plan Encounters Date Type Department Care Team Description 02/14/2025 Results Follow-Up [address] [address] Maeve Sharif APRN CBC and differential, Comprehensive metabolic panel, Urinalysis with culture reflex, Additional followed-up results: 3 01/05/[address] [address] Viviane Richey MD Medication Refill 12/23/2024 Refill [facility] [address] [facility] [address] [place] [address] Viviane Karimi MD Medication Refill from Last 3 Months Family History Medical History Relation Name Comments Blood Disorder Neg Hx Breast cancer Neg Hx Clotting disorder Neg Hx Colon cancer Neg Hx Social History Tobacco Use Types Packs/Day Years Used Date Smoking Tobacco: Never Smokeless Tobacco: Never Tobacco Cessation:Counseling Given: Not Answered Alcohol Use Standard Drinks/Week Comments Yes 49 [...] on file Sexual Orientation Not on file Last Filed Vital Signs Vital Sign Reading Time Taken Comments Blood Pressure 143/65 11/05/2024 2:31 AM EDT Pulse 61 11/05/2024 2:31 AM EDT Temperature 36.9 C (98.5 F) 11/05/2024 12:14 AM EDT Respiratory Rate 18 11/05/2024 2:31 AM EDT Oxygen Saturation 100% 11/05/2024 2:31 AM EDT Inhaled Oxygen Concentration - - Weight 84.5 kg (186 lb 3.2 oz) 10/17/2024 9:54 A M EDT Height 149.9 cm (4' 11 ) 09/30/2024 9:04 AM EDT Body Mass Index 37.61 09/30/2024 9:04 AM EDT Plan of Treatment Health Maintenance Due Date Last Done Comments Diabetic eye exam 1980 Diabetic foot exam 1980 Hepatitis B vaccine series (1 of 3 - 19+ 3-dose series) 1989 Cervical cancer screening 07/30/1991 Breast cancer screening 2010 Colon cancer screening, Colonoscopy 07/30/2015 Influenza vaccine 10/25/2024 01/25/2023, , 05/07/2018, Additional history exists Covid-19 vaccine series (2024- season) 2024 05/11/2023, 06/08/2022, 02/11/2022, Additional history exists Hemoglobin A1C 04/19/2025 10/17/2024, 05/26, 06/09/2022, Additional history exists Urine Microalbumin 06/21/2025 06/21/2024 LDL monitoring 10/17/2025 10/17/2024, 06/21/2024 Tetanus adult (Td q 10,TDAP once) 06/06/2032 06/06/2022, 01/13/2015, 09/09/2014 RSV Immunization (1 - 1-dose 75+ series) 2045 Shingles vaccine (Shingrix) Completed 06/08/2022, 1 05/16/2021 Pneumococcal Vaccine (2 - 49 years) Discontinued 10/12/2023, 05/07/2018 Pneumococcal Vaccine (50+ years) Completed 10/12/2023, 05/07/2018 HIV screening Completed 06/21/2024 Hepatitis C screening Completed 06/21/2024 Meningococcal B Vaccine Aged Out No l onger eligible based on patient's age to complete this topic Meningococcal Vaccine Aged Out No neal marleny eligible based on patient's age to complete this topic Procedures Procedure Name Priority Date/Time Associated Diagnosis Comments HEMOGLOBIN A1C Routine 10/17/2024 11:06 AM EDT Type 2 diabetes mellitus without complication, without long-term current use of insulin Primary hypertension LIPID PANEL WITH REFLEX TO DIRECT LDL (Q) Routine 10/17/2024 11:06 AM EDT Type 2 diabetes mellitus without complication, without long-term current use of insulin Primary hypertension ALBUMIN/CREATININE PANEL, URINE, RANDOM Routine 06/21/2024 3:49 PM EDT Type 2 diabetes mellitus without complication, without long-term current use of insulin (HC Code) HIV 1/2 AG/AB, W/REFLEXES (Q) Routine 06/21/2024 3:49 PM EDT Encounter for screening for HIV HEPATITIS C AB WITH REFLEX TO HCV PCR Routine 06/21/2024 3:49 PM EDT Encounter for hepatitis C screening test for low risk patient from Last 3 Months or Most Recently Relevant to Health Maintenance Results * (ABNORMAL) Lipid panel with reflex to direct LDL (Q) (10/17/2024 11:06 AM EDT) Pathologist [facility] Cholesterol, Total 277(H) <200 mg/dL [facility] HDL 112 > OR = 50 mg/dL [facility] Triglycerides 170(H) <150 mg/dL [facility] LDL Cholesterol 134(H) mg/dL (calc) [facility] Comment: Reference range: <100 Desirable range <100 mg/dL for primary prevention; <70 mg/dL for patients with CHD or diabetic patients with > or = 2 CHD risk factors. LDL-C is now calculated using the Laurence calculation, which is a validated novel method providing better accuracy than the Friedewald equation in the estimation of LDL-C. Emmanuel TEE et al. TARAH. 2013;310(19): 7089-6598 (http://education.Live Shuttle.TraitWare/faq/BYL720) Chol/HDL Ratio 2.5 <5.0 (calc) [facility] Non-HDL Cholesterol 165(H) <130 mg/dL (calc) [facility] Comment: For patients with diabetes plus 1 major ASCVD risk factor, treating to a non-HDL-C goal of <100 mg/dL (LDL-C of <70 mg/dL) is considered a therapeutic option. Blood 10/17/2024 11:0 6 AM EDT 10/17/2024 11:07 AM EDT Narrative Resulting Agency Comment Performing Lab: Site ID: [id number] Name: [facility] Address: [address] [place] [phone] Director: Reinier Solis M.D. us Ameve Chante MANAGER RESPIRATORY CARE LAB BLOOD ORDERABLES Final Res ult Performing Organization Address [facility] de Phone Number [facility] [address] [place] [address] * (ABNORMAL) Hemoglobin A1c (10/17/2024 11:06 AM EDT) Hemoglobin A1c 6.4(H) <5.7 % [facility] Comment: For someone without known diabetes, a hemoglobin A1c value between 5.7% and 6.4% is consistent with prediabetes and should be confirmed with a follow-up test. For someone with known diabetes, a value <7% indicates that their diabetes is well controlled. A1c targets should be individualized based on duration of diabetes, age, comorbid conditions, and other considerations. This assay result is consistent with an increased risk of diabetes. Currently, no consensus exists regarding use of hemoglobin A1c for diagnosis of diabetes for children. Blood 10/17/2024 11:0 6 AM EDT 10/17/2024 11:07 AM EDT Narrative Resulting Agency Comment Performing Lab: Site ID: [id number] Name: [facility] Address: [address] [place] [phone] Director: Reinier Solis M.D. us Maeve Chante MANAGER RESPIRATORY CARE LAB BLOOD ORDERABLES Final Res ult Performing Organization Address [facility] Co de Phone Number [facility] [address] [place] [address] * Albumin/creatinine panel, urine, random (06/21/2024 3:49 PM EDT) Creatinine, Random Urine 115 20 - 275 mg/dL [facility] Microalbumin, Urine <0.2 See Note: mg/dL [facility] Comment: Reference Range: Reference Range Not established Microalb Creat Ratio NOTE <30 mg/g creat [facility] Comment: NOTE: The urine albumin value is less than 0.2 mg/dL therefore we are unable to calculate excretion and/or creatinine ratio. The ADA defines abnormalities in albumin excretion as follows: Albuminuria Category Result (mg/g creatinine) Normal to Mildly increased <30 Moderately increased 30-299 Severely increased > OR = 300 The ADA recommends that at least two of three specimens collected within a 3-6 month period be abnormal before considering a patient to be within a diagnostic category. Urine 06/21/2024 3:49 PM EDT 06/21/2024 3:50 PM EDT Narrative Resulting Agency Comment Performing Lab: Site ID: [id number] Name: [facility] Address: [address] [place] [phone] Director: Reinier Solis M.D. Aurelio Gutierrez MD URINE ORDERABLES Final Result Performing Organization Address City/State/[facility] Co de Phone Number [facility] [address] [place] [address] * HIV 1/2 ag/ab, w/reflexes (Q) (06/21/2024 3:49 PM EDT) HIV Ag/Ab, 4th Generation NON-REACT WILLAM NON-REACT WILLAM [facility] Comment: HIV-1 antigen and HIV-1/HIV-2 antibodies were not detected. There is no laboratory evidence of HIV infection. PLEASE NOTE: This information has been disclosed to you from records whose confidentiality may be protected by state law. If your state requires such protection, then the state law prohibits you from making any further disclosure of the information without the specific written consent of the person to whom it pertains, or as otherwise permitted by law. A general authorization for the release of medical or other information is NOT sufficient for this purpose. For additional information please refer to http://AuditFile.AuditFile/faq/YFR733 (This link is being provided for informational/ educational purposes only.) The performance of this assay has not been clinically validated in patients less than 2 years old. Blood 06/21/2024 3:49 PM EDT 06/21/2024 3:50 PM EDT Narrative Resulting Agency Comment Performing Lab: Site ID: [id number] Name: [facility] Address: [address] [place] [phone] Director: Reinier Solis M.D. Aurelio Gutierrez MD LAB BLOOD ORDERABLES Final Resu lt Performing Organization Address [facility] de Phone Number [facility] [address] [place] [address] * Hepatitis C Ab with reflex to HCV PCR (06/21/2024 3:49 PM EDT) Hepatitis C Ab NON-REACT WILLAM NON-REACT WILLAM [facility] Comment: HCV antibody was non-reactive. There is no laboratory evidence of HCV infection. In most cases, no further action is required. However, if recent HCV exposure is suspected, a test for HCV RNA (test code 85340) is suggested. For additional information please refer to http://AuditFile.AuditFile/faq/AMS81d5 (This link is being provided for informational/ educational purposes only.) Blood 06/21/2024 3:49 PM EDT 06/21/2024 3:50 PM EDT Narrative Resulting Agency Comment Performing Lab: Site ID: [id number] Name: [facility] Address: [address] [place] [phone] Director: Reinier Solis M.D. us Aurelio Gutierrez MD LAB BLOOD ORDERABLES Final Resu lt Performing Organization Address [facility] de Phone Number [facility] [address] [place] [address] from Last 3 Months or Most Recently Relevant to Health Maintenance Insurance [place] Member Subscriber Plan / Payer (Ef fective 2024-Present) Name:Mallika Kuhn Member ID:[id number] Relation to Subscriber:Self Name:Mallika Kuhn Subscriber ID:[id number] Payer ID:[id number] Group ID:Not on file Type:Not on file Address: [address] [place] Member Subscriber Plan / Payer (Ef fective 2024-Present) Name:Harpreet Mallika Member ID:[id number] Relation to Subscriber:Self Name:Mallika Kuhn Subscriber ID:[id number] Payer ID:[id number] Group ID:Not on file Type:Not on file Address: [address] [place] Care Teams Retail Marketing Executive Relationship Specialty Start Date End Date [facility] [phone] [place] [address] PCP - General 11/05/24
--- OUTSIDE RECORDS SUMMARY | 2025-03-18 11:05 | XMS_ITS | Encounter Summary ---
Author Organization [facility] Address [address] [place] [address] Care Team Providers Care General Maintenance Engineer Name Role Phone Venus Vasquez Primary Care Provider Mayra Briggs MD Primary Care Provide r Milvia Patricia MD Primary Care Provider [phone] Reason for Visit * Reason Comments Med Refill Encounter Details Date Type Department Care Team (Late st Contact Info) Description 09/16/2022 Refill [facility] [address] [place] [address] Moses Beard FNP Controlled type 2 diabetes mellitus without complication, without long-term current use of insulin ([facility]) Social History Tobacco Use Types Packs/Day Years [...] as of this encounter Visit Diagnoses Diagnosis Controlled type 2 diabetes mellitus without complication, without long-term current use of insulin ([facility]) documented in this encounter Care Teams General Maintenance Engineer Relationship Specialty Start Date End Date Venus Vasquez FNP PCP - General Family Medicine 11/02/22 11/15/22 Mayra Euceda MD [address] [place] [address] PCP - General Internal Medicine 11/16/22 10/31/24 Milvia Patricia MD [address] [place] [address] PCP - General Family Medicine 03/18/25 VENUS VASQUEZ [address] [place], [place] Primary Care Provider Family Medicine 09/24/22 Betty Wyatt Furnace Mechanic HelperMason Helper 07/06/23 documented as of this encounter
--- OUTSIDE RECORDS SUMMARY | 2025-03-18 11:05 | XMS_ITS | Encounter Summary ---
Author Organization [employer] Address [address] [facility] [address] [place] [address] Care Team Providers Care Medical Administrative Name Role Phone Milvia Patricia MD Primary Care Provider Encounter Details Date Type Department Care Team (Latest Contact Info) Description 03/18/2025 Travel Social History Tobacco Use Types Packs/Day Years [...] 9:14 AM EST) No Anmol Cruz PharmD Help patients manage their type 2 diabetes Care Plan Help patients manage their type 2 diabetes Milvia Johnson MD Weekly blood pressure task Care Plan [...] neuropathy Care Plan Patient has diabetic neuropathy Milvia Johnson MD Weekly blood pressure task Care Plan Weekly blood pressure task No Milvia Patricia MD Weekly blood pressure task Care Plan Weekly blood pressure task Milvia Johnson MD Patient has chronic kidney disease Care [...] Weekly blood pressure task No Musa Hernandez CLAUDIA Patient has chronic kidney disease Care Plan [...] Hernandez LMHC documented as of this encounter Visit Diagnoses Not on filedocumented in this encounter Additional Health Concerns Active [...] documented as of this encounter Care Teams Medical Administrative Relationship Specialty Start Date End Date Milvia Patricia MD [address] [place] [address] PCP - General Family Medicine 03/18/25 JULIUS MARES [address] [place], [place] Primary Care Provider Family Medicine 09/24/22 Betty Wyatt Painter And Body WorkBusiness Initiatives Manager 07/06/23 documented as of this encounter
--- OUTSIDE RECORDS SUMMARY | 2025-03-18 11:05 | XMS_ITS | Clinical Summary ---
Author Organization [employer] Address [address] [place] [address] Care Team Providers Care Manager Agency Name Role Phone Milvia Patricia MD Primary Care Provider [phone] Allergies Active Allergy Reactions Criticality Noted Date Comments Ciprofloxacin Hives High 09/23/2021 Medications * This document contains information received from the source organization and may not represent a complete record from that organization. Blood Pressure Monitoring (Blood Pressure Cuff) miscIndications:P rimary hypertension 1 each Once daily. 1 each 05/11/19 24 Active OLANZapine (ZyPREXA) 5 MG tabletIndications :Severe depression (CMS/HCC) (HCC) Take 1 tablet (5 mg) by mouth Once per day. 90 tablet 1 03/18/20 25 Active escitalopram (Lexapro) 10 MG tabletIndications :Severe depression (CMS/HCC) (HCC) Take 1 tablet (10 mg) by mouth 1 (one) time each day at the same time. 90 tablet 1 03/18/20 25 Active Alcohol Swabs (Alcohol Prep) 70 % padsIndications:T ype 2 diabetes mellitus without complication, without long-term current use of insulin (HCC) TEST BLOOD SUGAR TWICE DAILY TEMPRANO EN LA MANANA Y DESPUES DE LA COMIDA EN LA TARDE 100 each 3 03/18/20 25 Active aspirin (Aspirin Low Dose) 81 MG chewable tabletIndications :Coronary artery disease without angina pectoris, unspecified vessel or lesion type, unspecified whether [place] or transplanted heart Chew 1 tablet (81 mg) Once per day. 90 tablet 3 03/18/20 25 Active atorvastatin (Lipitor) 80 MG tabletIndications :Hyperlipidemia, unspecified hyperlipidemia type TAKE 1 TABLET BY MOUTH EVERY MORNING 90 tablet 3 03/18/20 25 Active busPIRone (Buspar) 15 MG tabletIndications :Severe depression (CMS/HCC) (HCC) Take 1 tablet (15 mg) by mouth 3 times daily. 270 tablet 3 03/18/20 25 Active famotidine (Pepcid) 20 MG tabletIndications :Heartburn Take 1 tablet (20 mg) by mouth Once per day. 90 tablet 3 03/18/20 25 Active ferrous sulfate 325 (65 Fe) MG tabletIndications :Iron deficiency anemia due to chronic blood loss Take 1 tablet (325 mg) by mouth with breakfast. 90 tablet 3 03/18/20 25 Active gabapentin (Neurontin) 300 MG capsuleIndication s:Diabetic polyneuropathy associated with type 2 diabetes mellitus ([facility]) Take 1 capsule (300 mg) by mouth at bedtime. 90 capsule 3 03/18/20 Active glucose blood (FREESTYLE LITE) test stripIndications: Type 2 diabetes mellitus without complication, without long-term current use of insulin ([facility]) TEST BLOOD SUGAR TWICE DAILY TEMPRANO EN LA MANANA Y DESPUES DE LA COMIDA EN LA TARDE 100 strip 11 03/18/20 Active lisinopril 5 MG tabletIndications :Type 2 diabetes mellitus without complication, without long-term current use of insulin ([facility]),Primary hypertension Take 1 tablet (5 mg) by mouth Once per day. 90 tablet 3 03/18/20 25 Active metFORMIN XR (Glucophage-XR) 500 MG 24 hr tabletIndications :Type 2 diabetes mellitus without complication, without long-term current use of insulin ([facility]) Take 2 tablets (1,000 mg) by mouth in the morning. Do not crush, chew, or split. 180 tablet 3 03/18/20 25 Active methIMAzole (Tapazole) 5 MG tabletIndications :Hyperthyroidism Take 1 tablet (5 mg) by mouth 1 (one) time each day at the same time. 90 tablet 2 03/18/20 25 026 Active prazosin (Minipress) 5 MG capsuleIndication s:Severe depression (CMS/HCC) (HCC) Take 1 capsule (5 mg) by mouth at bedtime. 90 capsule 03/18/20 25 026 Active propranolol (Inderal) 20 MG tabletIndications :Disabling essential tremor Take 1 tablet (20 mg) by mouth 2 times daily. 180 tablet 3 03/18/20 25 Active TRUEplus Lancets 33G miscIndications:T ype 2 diabetes mellitus without complication, without long-term current use of insulin (HCC) TEST BLOOD SUGAR TWICE DAILY TEMPRANO EN LA MANANA Y DESPUES DE LA COMIDA EN LA TARDE 100 each 3 03/18/20 25 Active acamprosate (Campral) 333 MG EC tablet TOME DOS TABLETAS POR V A ORAL PEDRO LUIS VECES AL D A 11/17/19 23 025 Discontinued(T herapy completed) OXcarbazepine (Trileptal) 300 MG tablet TAKE 1 TABLET BY MOUTH EVERYDAY AT BEDTIME 12/09/19 025 Discontinued(T herapy completed) busPIRone (Buspar) 15 MG tablet TAKE 1 TABLET BY MOUTH THREE TIMES A DAY 12/09/19 23 025 Discontinued(R eorder (will not trigger notification to Pharmacy)) OLANZapine (ZyPREXA) 5 MG tablet TAKE 1 TABLET BY MOUTH EVERY DAY 12/21/19 025 Discontinued(R eorder (will not trigger notification to Pharmacy)) TRUEplus Lancets 33G miscIndications:T ype 2 diabetes mellitus without complication, without long-term current use of insulin (HCC) TEST BLOOD SUGAR TWICE DAILY TEMPRANO EN LA MANANA Y DESPUES DE LA COMIDA EN LA TARDE 100 each 3 10/16/19 24 025 Discontinued(R eorder (will not trigger notification to Pharmacy)) Alcohol Swabs (Alcohol Prep) 70 % padsIndications:T ype 2 diabetes mellitus without complication, without long-term current use of insulin (HCC) TEST BLOOD SUGAR TWICE DAILY TEMPRANO EN LA MANANA Y DESPUES DE LA COMIDA EN LA TARDE 100 each 3 10/16/19 24 025 Discontinued(R eorder (will not trigger notification to Pharmacy)) glucose blood (FREESTYLE LITE) test stripIndications: Type 2 diabetes mellitus without complication, without long-term current use of insulin (HCC) TEST BLOOD SUGAR TWICE DAILY TEMPRANO EN LA MANANA Y DESPUES DE LA COMIDA EN LA TARDE 100 strip 11 10/23/19 025 Discontinued(R eorder (will not trigger notification to Pharmacy)) emtricitabine-ten ofovir DF (Truvada) 200-300 MG tabletIndications :On pre-exposure prophylaxis for HIV TAKE 1 TABLET BY MOUTH EVERY MORNING 30 tablet 12/26/19 025 Discontinued(T herapy completed) gabapentin (Neurontin) 300 MG capsuleIndication s:Diabetic polyneuropathy associated with type 2 diabetes mellitus (HCC) TAKE 1 CAPSULE BY MOUTH THREE TIMES DAILY 90 capsule 12/26/19 025 Discontinued(R eorder (will not trigger notification to Pharmacy)) aspirin (Aspirin Low Dose) 81 MG chewable tabletIndications :Coronary artery disease without angina pectoris, unspecified vessel or lesion type, unspecified whether [place] or transplanted heart Chew 1 tablet (81 mg) Once per day. 90 tablet 01/21/20 025 Discontinued(R eorder (will not trigger notification to Pharmacy)) atorvastatin (Lipitor) 80 MG tabletIndications :Hyperlipidemia, unspecified hyperlipidemia type TAKE 1 TABLET BY MOUTH EVERY MORNING 90 tablet 1 01/21/20 025 Discontinued(R eorder (will not trigger notification to Pharmacy)) escitalopram (Lexapro) 10 MG tablet Take 1 tablet (10 mg) by mouth 1 (one) time each day at the same time. 30 tablet 1 01/21/20 025 Discontinued(R eorder (will not trigger notification to Pharmacy)) famotidine (Pepcid) 20 MG tabletIndications :Heartburn Take 1 tablet (20 mg) by mouth Once per day. 180 tablet 1 01/21/20 025 Discontinued(R eorder (will not trigger notification to Pharmacy)) lisinopril 10 MG tablet Take 0.5 tablets (5 mg) by mouth Once per day. 45 tablet 01/21/20 025 Discontinued(D ose adjustment) metFORMIN XR (Glucophage-XR) 500 MG 24 hr tablet Take 2 tablets (1,000 mg) by mouth in the morning. Do not crush, chew, or split. 180 tablet 1 01/21/20 025 Discontinued(R eorder (will not trigger notification to Pharmacy)) methIMAzole (Tapazole) 5 MG tabletIndications :Hyperthyroidism Take 1 tablet (5 mg) by mouth 1 (one) time each day at the same time. 30 tablet 2 01/21/20 025 Discontinued(R eorder (will not trigger notification to Pharmacy)) propranolol (Inderal) 20 MG tablet Take 1 tablet (20 mg) by mouth 2 times daily. 60 tablet 2 01/21/20 025 Discontinued(R eorder (will not trigger notification to Pharmacy)) prazosin (Minipress) 5 MG capsule Take 1 capsule (5 mg) by mouth at bedtime. 90 capsule 01/21/20 025 Discontinued(R eorder (will not trigger notification to Pharmacy)) busPIRone (Buspar) 15 MG tablet Take 1 tablet (15 mg) by mouth 3 times daily. 90 tablet 1 03/18/20 025 Discontinued(R eorder (will not trigger notification to Pharmacy)) ferrous sulfate 325 (65 Fe) MG tablet Take 325 mg by mouth with breakfast, with lunch, and with evening meal. 07/02/19 025 Discontinued(R eorder (will not trigger notification to Pharmacy)) Active Problems Problem Noted Date Diagnosed Date Severe depression (CMS/HCC) 03/18/2025 ABDIEL (generalized anxiety disorder) 03/18/2025 Housing insecurity 03/18/2025 Foot fracture, right 03/18/2025 Intestinal obstruction due to decreased peristal sis 03/18/2025 Cocaine abuse 03/18/2025 Class 2 severe obesity with serious comorbidity and body mass index (BMI) of 37.0 to 37.9 in adult 03/18/2025 Cocaine use 03/18/2025 Disabling essential tremor 03/18/2025 History of suicidal ideation 06/21/2024 Overview (03/18/2025): Reports was hospitalized 2023 for 5 days with SI, she denies attempt or plan Diabetic polyneuropathy asso ciated with type 2 diabetes mellitus 10/12/2023 Assessment & Plan (10/12/2023 12:04 PM EDT): I will start her on gabapentin 300mg Q 8hrs Diabetes is: controlled - Lab Results Component Value Date HGBA1C 6.1 (A) 10/12/2023 HGBA1C 5.4 05/11/2023 HGBA1C 5.6 11/16/2022 - Lab Results Component Value Date MICROALBUR <5.0 05/11/2023 CREATININE 0.69 05/11/2023 -Changes: none - Diabetic eye exam:referral done - Diabetic foot exam:pending - Continue lifestyle modifications - Continue current medications - Follow up: 3 months Encounter for screening mamm ogram for malignant neoplasm of breast 05/11/2023 Colon cancer screening 05/11/2023 Small bowel obstruction 02/06/2023 Assessment & Plan (02/06/2023 11:35 AM EST): Patient needs and HDF appointment She has an appointment with surgery on 02/08/23 I advise its extremely important not to miss this appointment Tremors of nervous system 02/06/2023 Assessment & Plan (10/12/2023 12:03 PM EDT): Likely essential tremors I will refer patient to neurology Assessment & Plan (02/06/2023 11:36 AM EST): I will consider on next appointment neurology referral Iron deficiency anemia due to chronic blood loss 02/06/2023 Assessment & Plan (02/06/2023 11:36 AM EST): Gi referral patient needs a colonoscopy Metrorrhagia 02/06/2023 Right foot pain 02/06/2023 Vaginal itching 02/06/2023 Assessment & Plan (02/06/2023 11:34 AM EST): No urinary symptoms, I will try with clotrimazole cream if persist or worse callback Primary hypertension 11/16/2022 Assessment & Plan (10/12/2023 12:03 PM EDT): - Aerobic exercise to reduce BP. Initial goal of 30 min walk 3-5x/week. Increase as tolerated. - low-sodium diet (goal: <2g/day) and heart healthy diet such as DASH to reduce BP and prevent ASCVD. - Home BP monitoring 1-2 x day with goal of <140/90. - Seek immediate medical attention for chest pain, palpitations, SOB, syncope, or sudden changes in mental status. - Do not change or discontinue current prescriptions without first consulting health care provider Assessment & Plan (05/11/2023 1:51 PM EST): Maintenance: BMP: ordered Lipid Panel: ordered - Aerobic exercise to reduce BP. Initial goal of 30 min walk 3-5x/week. Increase as tolerated. - low-sodium diet (goal: <2g/day) and heart healthy diet such as DASH to reduce BP and prevent ASCVD. - Home BP monitoring 1-2 x day with goal of <140/90. - Seek immediate medical attention for chest pain, palpitations, SOB, syncope, or sudden changes in mental status. - Do not change or discontinue current prescriptions without first consulting health care provider Assessment & Plan (02/06/2023 11:33 AM EST): - Aerobic exercise to reduce BP. Initial goal of 30 min walk 3-5x/week. Increase as tolerated. - low-sodium diet (goal: <2g/day) and heart healthy diet such as DASH to reduce BP and prevent ASCVD. - Home BP monitoring 1-2 x day with goal of <140/90. - Seek immediate medical attention for chest pain, palpitations, SOB, syncope, or sudden changes in mental status. - Do not change or discontinue current prescriptions without first consulting health care provider Assessment & Plan (11/18/2022 3:21 PM EDT): - Aerobic exercise to reduce BP. Initial goal of 30 min walk 3-5x/week. Increase as tolerated. - low-sodium diet (goal: <2g/day) and heart healthy diet such as DASH to reduce BP and prevent ASCVD. - Home BP monitoring 1-2 x day with goal of <140/90. - Seek immediate medical attention for chest pain, palpitations, SOB, syncope, or sudden changes in mental status. - Do not change or discontinue current prescriptions without first consulting health care provider Alcohol use disorder 11/16/2022 Heartburn 11/16/2022 Urinary frequency 11/16/2022 Major depressive disorder, r ecurrent episode with anxious distress 11/16/2022 Assessment & Plan (11/16/2022 4:06 PM EDT): Assessment: Patient with anhedonia, hopelessness, sleep disturbance, fatigue, diminished appetite, low self-esteem, lack of concentration, slow speech, passive SI without plan or intentions, crying spells, isolation, anxiousness, persistent worry, unable to relax, restlessness, and fearfulness. Factors contributing to her symptoms are: homelessness, Hx of trauma in childhood and adulthood, Hx of SI attempt, substance use. Patient will benefit from Individual Therapy with CBT approach to identify cognitive distortions and work on cognitive restructuring. At this time Breann Mullins meets criteria for Visit Diagnoses: Problem List Items Addressed This Visit Other Alcohol use disorder Major depressive disorder, recurrent episode with anxious distress (CMS/HCC) Cocaine use disorder (CMS/HCC) Patient ready to address current needs Yes Strengths include willing to seek treatment. PLAN: 1. Follow up with [facility]: Not recommended for follow-up 2. Patient goal is to improve her mental health 3. Behavioral Recommendations a. Ind. Therapy, referral will be submitted b. Use of coping skills provided as recommended. c. Keeping Psychiatrist appt with Dr. Macias at [facility]. Hypertensive heart disease 07/20/2022 Hyperlipidemia 07/20/2022 Restless leg syndrome 07/20/2022 PTSD (post-traumatic stress disorder) 03/17/2022 01/12/2023 Injury of finger of right hand 03/09/2022 Overview (03/18/2025): Traumatic injury R 4th digit in setting of [facility] XR FINGER (4TH) 2+ VIEWS-RIGHT: 12/15/2020 CLINICAL HISTORY: Old fracture . No motion PIP No prior studies. FINDINGS: No acute fracture or dislocation. 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 Joint spaces and articular surfaces are otherwise preserved. No erosion or aggressive osseous destruction. No focal soft tissue swelling or abnormal soft tissue calcification. 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 Underwent catheterization. Records requested. Controlled type 2 diabetes m ankit without complication, without long-term current use of insulin 09/23/2021 Overview (01/12/2023): 05/2022 - 5.3% Last Assessment & Plan: In need of refills. Provided one month supply until new pt appt at [facility] on 11/10/22. Rx metformin 500mg/d along with healthy dietary choices and increased movement. Assessment & Plan (05/11/2023 1:53 PM EST): Diabetes is: controlled - Lab Results Component Value Date HGBA1C 5.4 05/11/2023 HGBA1C 5.6 11/16/2022 - Lab Results Component Value Date CREATININE 0.69 05/11/2023 -Changes: none - Diabetic eye exam:has an appointment - Diabetic foot exam:pending - Continue lifestyle modifications - Continue current medications - Follow up: 3 months Assessment & Plan (02/06/2023 11:36 AM EST): - Lab Results Component Value Date HGBA1C 5.6 11/16/2022 - Lab Results Component Value Date CREATININE 0.73 11/16/2022 - Diabetic eye exam:pending - Diabetic foot exam: referral done today - Continue lifestyle modifications - Continue current medications - Assessment & Plan (11/18/2022 3:22 PM EDT): - Lab Results Component Value Date HGBA1C 5.6 11/16/2022 - Lab Results Component Value Date CREATININE 0.73 11/16/2022 - - Diabetic eye exam: referral done - Diabetic foot exam: pending - Continue lifestyle modifications - Continue current medications - Hyperthyroidism 09/23/2021 Type 2 diabetes mellitus wit hout complication, without long-term current use of insulin 09/23/2021 Closed nondisplaced fracture of phalanx of right ring finger 10/16/2020 Resolved Problems Problem Noted Date Diagnosed Date Resolved Date On pre-exposure prophylaxis for HIV 07/20/2022 03/18/2025 Stimulant use disorder 01/31/202203/18 Overview (01/12/2023): Last Assessment & Plan: Briefly discussed [facility] clinic at [facility], mentioned at last provider visit. May also benefit from pharm tx (eg topiramate, mirtazepine) Will start mirtaz (see depression note) Encounters * This document contains information received from the source organization and may not represent a complete record from that organization. Date Type Department Care Team Description 03/18/2025 9:45 AM EST Office Visit [facility] [address] [place] [phone] Milvia Patricia MD Type 2 diabetes mellitus without complication, without [...] unspecified vessel or lesion type, unspecified whether [place] or transplanted heart; Hyperlipidemia, unspecified hyperlipidemia type; Heartburn; Hyperthyroidism; Cocaine abuse ([facility]); ABDIEL (generalized anxiety disorder); Severe depression (CMS/HCC) ([facility]); Screening for colon cancer; Primary hypertension; Iron deficiency anemia due to chronic blood loss 03/18/2025 Travel 03/17/2025 Telephone [facility] [address] [place] [phone] Milvia Patricia MD chart prep 01/20/2025 3:40 PM EDT Office Visit [facility] [address] [place] [address] [phone] Callie Dykes FNP Coronary artery disease without angina pectoris, unspecified vessel or lesion type, unspecified whether [place] or transplanted heart; Hyperlipidemia, unspecified hyperlipidemia type; Heartburn; Hypertensive heart disease, unspecified whether heart failure present; Hyperthyroidism 01/20/2025 Travel from Last 3 Months Immunizations Immunization Administration Dates Next Due Influenza injectable quadrivalent preservative f ree 01/25/2023,02/11/2022 Influenza, IIV3, injectable 05/07/2018 Influenza, Unspecified 01/21/2016,01/13/2015 Influenza, seasonal, injectable, preservative fr ee 03/18/2025 Moderna Covid-19 Vaccine 6+ Bivalent 06/08/2022 Pfizer Covid-19 Vaccine 12+ 05/11/2023 Pneumococcal Conjugate PCV 20 10/12/2023 Pneumococcal Polysaccharide PPSV23 05/07/2018 Tdap 06/06/2022,01/13/2015 Zoster, Recombinant 06/08/2022,03/15/2022 Social History Tobacco Use Types Packs/Day Years Used Date Smoking Tobacco: Never Passive Smoke Exposure: Never Smokeless Tobacco: Never Tobacco Cessation:Counseling Given: Not Answered Alcohol Use Standard Drinks/Week Comments Not Currently [...] with others, in a hotel, in a residential, living outside on the street, on a [...] Orientation Straight 07/20/2022 11 :34 AM EDT Last Filed Vital Signs Vital Sign Reading Time Taken Comments Blood Pressure 144/71 01/20/2025 2:20 PM EDT Pulse 72 03/18/2025 9:10 AM EST Temperature 36.3 C (97.4 F) 03/18/2025 9:10 AM EST Respiratory Rate 20 03/18/2025 9:10 AM EST Oxygen Saturation 98% 03/18/2025 9:10 AM EST Inhaled Oxygen Concentration - - Weight 84.8 kg (187 lb) 03/18/2025 9:10 AM EST Height 149.9 cm (4' 11 ) 03/18/2025 9:10 AM EST Body Mass Index 37.77 03/18/2025 9:10 AM EST Plan of Treatment Health Maintenance Due Date Last Done Comments CT Colonography 1970 Colonoscopy 1970 Colorectal Cancer Screening 1970 FIT DNA/Cologuard 1970 FIT 1970 FOBT 1970 Sigmoidoscopy 1970 Diabetes: Foot Exam 1980 Eye Exam 1980 Hepatitis B Vaccines (1 of 3 - 19+ 3-dose series) 1989 RSV Patients and Patients Aged 60 years or older (1 - Risk 50-74 years 1-dose series) 2020 Lipid Panel 11/17/2023 11/16/2022 Mammogram 05/06/2024 05/06/2022 Diabetes: Urine Protein Screening 05/11/2024 05/11/2023 SDOH Screening 07/30/2024 07/31/2023 COVID-19 Vaccine ( season) 2024 05/11/2023, 06/08/2022, 02/11/2022, Additional history exists Depression Monitoring 09/16/2025 03/18/2025, 025 Diabetes: Hemoglobin A1C 09/16/2025 025, 10/12/2023, 05/11/2023, Additional history exists Alcohol/Substance Use Screening 03/18/2026 03/18/2025 Disability Screening 03/18/2026 03/18/2025 Tobacco Screening 03/18/2026 03/18/2025 Cervical Cancer Screening 04/07/2027 HPV/Cotest 04/07/2027 04/07/2022 Pap Smear 04/07/2027 04/07/2022 DTaP/Tdap/Td Vaccines (3 - Td or Tdap) 06/06/2032 06/06/2022, 01/13/2015 Zoster Vaccines Completed 06/08/2022, 03/15/2022 HIV Screening Completed 11/16/2022, 10/2021, 09/23/2021, Additional history exists Hepatitis C Screening Completed 11/16/2022 Pneumococcal Vaccine: 50+ Years Completed 10/12/2023, 05/07/2018 Influenza Vaccine Completed 03/18/2025, , 02/11/2022, Additional history exists HIB Vaccines Aged Out No longer eligi ble based on patient's age to complete this topic HPV Vaccines Aged Out No longer eligi ble based on patient's age to complete this topic Hepatitis A Vaccines Aged Out No long er eligible based on patient's age to complete this topic IPV Vaccines Aged Out No longer eligi ble based on patient's age to complete this topic Meningococcal B Vaccine Aged Out No l onger eligible based on patient's age to complete this topic Meningococcal Vaccine Aged Out No neal marleny eligible based on patient's age to complete this topic RSV under 20 months Aged Out No longe r eligible based on patient's age to complete this topic Rotavirus Vaccines Aged Out No longer eligible based on patient's age to complete this topic Goals Goal Patient Goal Type Associated Problems [...] Patient has chronic kidney disease No Milvia Patriica MD Patient has chronic kidney disease Care [...] Weekly blood pressure task No Musa Hernandez [facility] Weekly blood pressure task Care Plan Weekly blood pressure task No Musa Hernandez CLAUDIA Weekly blood pressure task Care Plan Weekly [...] has diabetic neuropathy No Musa Hernandez [facility] Procedures Procedure Name Priority Date/Time Associated Diagnosis Comments POCT GLYCATED HEMOGLOBIN, TOTAL Routine 03/18/2025 9:14 AM EST Type 2 diabetes mellitus without complication, without long-term current use of insulin (HCC) POCT GLUCOSE ([id number]) Routine 03/18/2025 9:13 AM EST Type 2 diabetes mellitus without complication, without long-term current use of insulin (HCC) ALBUMIN, RANDOM URINE W/CREATININE Routine 05/11/2023 12:34 PM EST HEPATITIS PANEL, GENERAL Routine 11/16/2022 3:49 PM EDT Alcohol use disorder HIV ANTIBODY/ANTIGEN ([place] [facility]) Routine 11/16/2022 3:49 PM EDT LIPID PANEL, STANDARD Routine 11/16/2022 3:49 PM EDT Alcohol use disorder HM PAP/HPV Routine 04/07/2022 from Last 3 Months or Most Recently Relevant to Health Maintenance Results * (ABNORMAL) POCT Hgb A1c (03/18/2025 [...] CARE TEST ENTER/EDIT ORDERABLES Final Result * Albumin, Random Urine W/Creatinine (05/11/2023 12:34 PM EST) Creatinine, Urine 19.98 mg/dL [facility] Microalbumin Urine <5.0 mg/L [facility] Microalbum Creatinine Ratio Ur TNP <30 ug/mg cr [facility] Comment:Unable to calculate albumin/creatinine ratio due to lowmicroalbumin or creatinine result. 05/11/2023 12:3 4 PM EST 05/11/2023 12:59 PM EST Mayra Camp MD LAB URINE ORDERABLES Final Result [facility] [address] [place] [phone] * HIV Ab/Ag ([place] [facility]) (11/16/2022 3:49 PM EDT) HIV AB/AG Nonreactive Nonreactive [facility] Comment:HIV-1 p24 Ag and/or HIV-1/HIV-2 Ab not detected.A test result that is nonreactive does not exclude thepossibility of exposure to or infection with HIV-1 and/orHIV-2. Nonreactive results in this assay for individualswith prior exposure to HIV-1 and/or HIV-2 may be due toantigen and antibody levels that are below the limit ofdetection of this assay.The [employer] Former Automatic HIV Ag/Ab Combo assay result andsupplemental assay results should be interpreted inconjunction with the patient's clinical presentation,history and other laboratory results. If the results areinconsistent with clinical evidence, additional testing issuggested to confirm the result. 11/16/2022 3:49 PM EDT 11/16/2022 5:27 PM EDT us Mayra Camp MD LAB BLOOD ORDERABLES Final Result Performing Organization Address [facility] Co de Phone Number [facility] [address] [place] [phone] * Hepatitis A,B,C Profile (11/16/2022 3:49 PM EDT) Hepatitis A IgM Nonreactive Nonreactive [facility] Comment:IgM antibodies to ZAVALA V not detected; does not exclude earlyacute or recovered HAV infection. ~Hepatitis B Surface Antibody NONREACTIVE Nonreactive [facility] Comment:Nonreactive: < 8.00 mIU/mL Hepatitis B Core Antibody Nonreactive Nonreactive [facility] Hepatitis C Antibody Nonreactive Nonreactive [facility] Comment:Antibodies to HCV no t detected; does not exclude early acuteHCV infection. Hepatitis B Surface Ag Negative Negative [facility] Blood Venous blood specimen / Unknown 11/16/2022 3:49 PM EDT 11/16/2022 5:27 PM EDT us Mayra Camp MD LAB BLOOD ORDERABLES Final Result Performing Organization Address [facility] Co de Phone Number [facility] [address] [place] [phone] * Lipid Panel, Standard (11/16/2022 3:49 PM EDT) Triglycerides 51 <150 mg/dL [facility] Comment:Desirable Triglyceri de: less than 150 mg/dLBorderline High Triglyceride 150-199 mg/dLHigh Triglyceride: 200-499 mg/dLVery High Triglyceride: greater than or equal to 5OO mg/dL Cholesterol 132 <200 mg/dL [facility] Comment:Desirable Cholestero l: less than 200 mg/dLBorderline High Cholesterol: 200-239 mg/dLHigh Cholesterol: greater than 239 mg/dL LDL Cholesterol Calculated 48 <100 mg/dL [facility] Comment:Desirable LDL: less than 100 mg/dLNear Optimal/Above Optimal LDL: 110- 129 mg/dLBorderline High LDL: 130-159 mg/dLHigh LDL: 160-189 mg/dLVery High LDL: greater than or equal to 190 mg/dL HDL Cholesterol 74 >40 mg/dL [facility] Comment:Desirable HDL: great er than 40 mg/dL Note: This HDL assay may give artificially low results in patients with liver disease. Blood Venous blood specimen / Unknown 11/16/2022 3:49 PM EDT 11/16/2022 5:27 PM EDT Mayra Camp MD LAB BLOOD ORDERABLES Final Result [facility] [address] [place] [phone] * Pap Smear (04/07/2022) Pap Negative for intraephithelial lesion or malignancy Negative for intraephithelial lesion or malignancy, Other HPV Undetected Undetected, Indeterminate, Quantitative, Not Detected Historical Provider HEALTH MAINTENANCE Final Result from Last 3 Months or Most Recently Relevant to Health Maintenance Additional Health Concerns Active Problems Noted Date [...] neuropathy 03/18/2025 Patient has diabetic neuropathy 03/18/2025 Insurance MEDICARE [facility] Care Teams Manager Agency Relationship Specialty Start Date End Date Milvia Patricia MD [address] [place] [phone] PCP - General Family Medicine 03/18/25 JULIUS MARES [address], [place] Primary Care Provider Family Medicine 09/24/22 Betty Wyatt Learning And Development SpecialistZigzagger 07/06/23
--- OUTSIDE RECORDS SUMMARY | 2025-03-18 11:05 | XMS_ITS | Encounter Summary ---
Author Organization [employer] Address [address] [facility] [address] [place] [address] Care Team Providers Care Cyber Transport Systems Specialist Name Role Phone Unavailable Primary Care Provider Unavailabl e Reason for Visit * Reason Onset Date Comments chart prep 03/17/2025 Encounter Details Date Type Department Care Team ([facility] st Contact Info) Description 03/17/2025 Telephone [facility] [address] [place] [phone] Milvia Patricia MD [address] [place] [phone] chart prep Social History Tobacco Use Types Packs/Day Years [...] with others, in a hotel, in a longterm, living outside on the street, on a [...] AM EDT documented as of this encounter Miscellaneous Notes * Telephone Encounter - Sultana Cabrera MA - 03/17/2025 10:20 AM EST Chart Prep Labs: done Images: done Referrals: appointment pending for neurology Vaccines due: Covid, Flu, Hep B, and RSV Screenings: colonoscopy, mammogram, eye exam, foot exam, and Lipid panel Overdue care gaps: A1c, Glucose, SBIRT, SDOH, PHQ-9, ABDIEL-7, and Disability screen documented in this encounter Plan of Treatment [...] has diabetic neuropathy No Sultana Cabrera MA documented as of this encounter Visit Diagnoses [...] neuropathy 03/17/2025 Patient has diabetic neuropathy 03/17/2025 Assessment Noted Time PHQ-9 Depression Total Score: 19 023 3:43 PM EDT documented as of this encounter Care Teams Cyber Transport Systems Specialist Relationship Specialty Start Date End Date JULIUS MARES [address] [place] [address] Primary Care Provider Family Medicine 09/24/22 Betty Wyatt Operations Research AnalystSole Polisher 07/06/23 documented as of this encounter
[2025-03-18 11:45] LABS: Alanine Aminotransferase 22 U/L (0-31); Albumin Level 4.1 g/dL (3.5-5.0); Alkaline Phosphatase 135 U/L (39-117); Anion Gap 12 (12-20); Aspartate Amino Transferase 25 U/L (5-31); Blood Urea Nitrogen 11 mg/dL (9-16); Calcium 9.2 mg/dL (8.4-10.2); Carbon Dioxide 28 mmol/L (22-29); Chloride 105 mmol/L (96-108); Cholesterol 206 mg/dL (<200); Estimated Glomerular Filt Rate > 60; HDL Cholesterol 90 mg/dL (>40); Potassium 3.6 mmol/L (3.3-5.1); Sodium 141 mmol/L (135-145); Total Protein 7.2 g/dL (6.5-8.0); Triglycerides 100 mg/dL (<150)
[2025-03-18 12:35] LABS: Microalbum/Creatinine Ratio Ur 13.6 ug/mg cr (<30)
== END 2025-03-18 10:05 | disposition home or self-care (01) ==
LOC: HO.HHCL 10:04
PROVIDERS: PCP General Practice; Visit Provider General Practice
DX: E11.9 Type 2 diabetes mellitus without complications (principal)
CPT/HCPCS: 36415; 80053; 80061; 82043; 82570